=== PATIENT | male | born 1950 | race Caucasian/White ===

== ENCOUNTER 2018-01-02 20:30 | Emergency (ER) | payer OTHER, MEDICARE ==
[~2018-01-02] VITALS: Ht 190.5 cm; Wt 81.0 kg
[~2018-01-02 20:30] MED LIST: ATOR80TA; ATOR80TA PO; BUPR200T PO; BUPR200T10; CARB1DRO16; CARB1DRO17 EACHEYE; CHOL100010 PO; CHOL100046; CLA10T PO; COU3T PO; COU4T PO; CYAN1CRY PO; CYAN500T15; FERR236T3; FERROUS GLUCONATE PO; FLO0.4C; FLO0.4C PO; LACTC; LISI-222 PO; LISI2.5T89; LOP25T PO; LORA10CA; MECL-111; MECL12.5 PO; METO25TA6; MULT-1074 PO; MULT-382; VENL150C2; VENL150C50 PO; WARF5TAB; [UNRECOGNIZED DRUG - CODE]; [UNRECOGNIZED DRUG - CODE] PO
[2018-01-02 21:23] LABS: BASOPHILS % (AUTO) 0.3 % (0-1); EOSINOPHILS # (AUTO) 0.3 X10'3 (0-0.9); EOSINOPHILS % (AUTO) 5.9 % (0-6); HEMATOCRIT 34.4 % (42.0-52.0); HEMOGLOBIN 11.5 g/dl (14.0-17.9); LYMPHOCYTES # (AUTO) 1.2 X10'3 (1.1-4.8); LYMPHOCYTES % (AUTO) 22.9 % (21-51); MEAN CORPUSCULAR HEMOGLOBIN 29.3 PG (27.0-31.0); MEAN CORPUSCULAR HGB CONC 33.5 % (33.0-36.5); MEAN CORPUSCULAR VOLUME 87.6 FL (78-98); MEAN PLATELET VOLUME 6.3 FL (7.4-10.4); MONOCYTES # (AUTO) 0.4 X10'3 (0-0.9); MONOCYTES % (AUTO) 7.8 % (2-12); NEUTROPHILS # (AUTO) 3.3 X10'3 (1.8-7.7); NEUTROPHILS % (AUTO) 63.1 % (42-75); PLATELET COUNT 180 X10'3 (140-440); RED BLOOD COUNT 3.93 X10'6 (4.70-6.10); RED CELL DISTRIBUTION WIDTH 16.1 % (11.5-14.5); WHITE BLOOD COUNT 5.2 X10'3 (4.5-11.0)
[2018-01-02 21:37] LABS: ALANINE AMINOTRANSFERASE 41 U/L (12-78); ALBUMIN 3.6 G/DL (3.4-5.0); ALKALINE PHOSPHATASE 120 IU/L (46-116); ANION GAP 7 (8-16); ASPARTATE AMINO TRANSFERASE 31 U/L (10-37); BILIRUBIN,TOTAL 0.3 MG/DL (0.1-1.0); BLOOD UREA NITROGEN 40 MG/DL (7-18); CALCIUM 8.8 MG/DL (8.5-10.1); CHLORIDE 106 MMOL/L (99-107); GLUCOSE 87 MG/DL (70-104); POTASSIUM 4.8 MMOL/L (3.5-5.1); SODIUM 143 MMOL/L (135-145); TOTAL CARBON DIOXIDE 29.9 MMOL/L (24-32); TOTAL PROTEIN 7.3 G/DL (6.4-8.2); eGFR 43 ML/MIN
[2018-01-02 22:51] LABS: CLARITY,URINE CLOUDY (Clear); COLOR,URINE YELLOW (Yellow); GLUCOSE, URINE NEGATIVE (Neg); KETONES,URINE NEGATIVE (Neg); LEUKOCYTE ESTERASE ,URINE LARGE (Neg); NITRITES, URINE NEGATIVE (Neg); OCCULT BLOOD,URINE TRACE-INTACT (Neg); PROTEIN,URINE NEGATIVE (Neg); UROBILINOGEN,URINE 0.2 E.U/dL (0.2-1.0)
[2018-01-02 22:52] LABS: UA COLLECTION TYPE CLN CATCH MIDSTREAM
[2018-01-02 23:08] LABS: RBC,URINE 0-2 /HPF (0-2); WBC,URINE TNTC /HPF (0-4)
[2018-01-02 23:09] LABS: BACTERIA,URINE FEW /HPF (Neg); MUCUS STRANDS NONE SEEN /LPF (Neg); SQUAMOUS EPITHELIAL CELL,UR FEW /LPF (FEW); WBC CLUMPS,URINE MANY /HPF (NEGATIVE)
[2018-01-02] MEDS ORDERED: bacitracin 15gm ointment TP ONE (23:15)
[2018-01-02] MEDS ORDERED: ondansetron/PF 4mg/2ml inj IV ONE (23:15)
[2018-01-02] MEDS ORDERED: doxycycline hyclate 100mg tablet.DR PO ONE (23:15)
[2018-01-02] MEDS ORDERED: DOXY100C43 PO (23:39)
[2018-01-03 00:02] VITALS: BP 143/88
== END 2018-01-03 00:05 | disposition home or self-care (01) ==
LOC: ER 20:31
DX: S01.01XA Laceration without foreign body of scalp, initial encounter (principal); N39.0 Urinary tract infection, site not specified; D69.6 Thrombocytopenia, unspecified; J44.9 Chronic obstructive pulmonary disease, unspecified; I12.9 Hypertensive chronic kidney disease with stage 1 through stage 4 chronic kidney disease, or unspecified chronic kidney disease; E11.22 Type 2 diabetes mellitus with diabetic chronic kidney disease; N18.9 Chronic kidney disease, unspecified; E11.42 Type 2 diabetes mellitus with diabetic polyneuropathy; E78.00 Pure hypercholesterolemia, unspecified; Z86.73 Personal history of transient ischemic attack (TIA), and cerebral infarction without residual deficits; Z90.49 Acquired absence of other specified parts of digestive tract; Z98.890 Other specified postprocedural states; Z88.8 Allergy status to other drugs, medicaments and biological substances; Z79.899 Other long term (current) drug therapy; Z79.01 Long term (current) use of anticoagulants; W18.39XA Other fall on same level, initial encounter; Y93.89 Activity, other specified; Y92.89 Other specified places as the place of occurrence of the external cause; Y99.8 Other external cause status
CPT/HCPCS: 36415; 70450; 72125; 80053; 81001; 85025; 87077; 87088; 87186; 99285; J2405

== ENCOUNTER 2018-10-24 14:06 | Emergency (ER) | payer MEDICARE, OTHER ==
[~2018-10-24] VITALS: Ht 188 cm; Wt 80.0 kg
[~2018-10-24 14:06] MED LIST changes: -LACTC; +LACTC PO
[2018-10-24 14:37] LABS: BASOPHILS % (AUTO) 0.4 % (0-1); EOSINOPHILS # (AUTO) 0.2 X10'3 (0-0.9); EOSINOPHILS % (AUTO) 2.7 % (0-6); HEMATOCRIT 40.6 % (42.0-52.0); HEMOGLOBIN 13.3 g/dl (14.0-17.9); LYMPHOCYTES # (AUTO) 0.9 X10'3 (1.1-4.8); LYMPHOCYTES % (AUTO) 16.1 % (21-51); MEAN CORPUSCULAR HEMOGLOBIN 29.8 PG (27.0-31.0); MEAN CORPUSCULAR HGB CONC 32.8 % (33.0-36.5); MEAN CORPUSCULAR VOLUME 90.9 FL (78-98); MEAN PLATELET VOLUME 5.9 FL (7.4-10.4); MONOCYTES # (AUTO) 0.4 X10'3 (0-0.9); MONOCYTES % (AUTO) 6.3 % (2-12); NEUTROPHILS # (AUTO) 4.2 X10'3 (1.8-7.7); NEUTROPHILS % (AUTO) 74.5 % (42-75); PLATELET COUNT 213 X10'3 (140-440); RED BLOOD COUNT 4.46 X10'6 (4.70-6.10); RED CELL DISTRIBUTION WIDTH 14.4 % (11.5-14.5); WHITE BLOOD COUNT 5.7 X10'3 (4.5-11.0)
[2018-10-24 14:52] LABS: ALANINE AMINOTRANSFERASE 52 U/L (12-78); ALBUMIN 3.7 G/DL (3.4-5.0); ALKALINE PHOSPHATASE 143 IU/L (46-116); ANION GAP 10 (8-16); ASPARTATE AMINO TRANSFERASE 32 U/L (10-37); BILIRUBIN,TOTAL 0.3 MG/DL (0.1-1.0); BLOOD UREA NITROGEN 28 MG/DL (7-18); CALCIUM 9.4 MG/DL (8.5-10.1); CHLORIDE 103 MMOL/L (99-107); CREATININE 1.65 MG/DL (0.60-1.10); GLUCOSE 126 MG/DL (70-104); POTASSIUM 4.4 MMOL/L (3.5-5.1); SODIUM 140 MMOL/L (135-145); TOTAL CARBON DIOXIDE 27.4 MMOL/L (24-32); TOTAL PROTEIN 7.5 G/DL (6.4-8.2); eGFR 41 ML/MIN
[2018-10-24 14:56] LABS: CLARITY,URINE CLOUDY (Clear); COLOR,URINE YELLOW (Yellow); GLUCOSE, URINE NEGATIVE (Neg); KETONES,URINE NEGATIVE (Neg); LEUKOCYTE ESTERASE ,URINE LARGE (Neg); NITRITES, URINE POSITIVE (Neg); OCCULT BLOOD,URINE MODERATE (Neg); PH,URINE 7.5 (4.8-8.0); PROTEIN,URINE TRACE mg/dl (Neg); UROBILINOGEN,URINE 0.2 E.U/dL (0.2-1.0)
[2018-10-24 14:57] LABS: UA COLLECTION TYPE STRAIGHT CATH
[2018-10-24 15:01] LABS: BACTERIA,URINE 2+ /HPF (Neg); MUCUS STRANDS NONE SEEN /LPF (Neg); SQUAMOUS EPITHELIAL CELL,UR NONE SEEN /LPF (FEW); WBC CLUMPS,URINE MANY /HPF (NEGATIVE); WBC,URINE TNTC /HPF (0-4)
[2018-10-24] MEDS ORDERED: VENL-191 PO (15:07)
[2018-10-24] MEDS ORDERED: SULF1TAB49 PO (15:08)
[2018-10-24] MEDS ORDERED: WARF3TAB PO (15:25)
[2018-10-24] MEDS ORDERED: TRAZ-218 PO (15:25)
[2018-10-24] MEDS ORDERED: normal saline 1000ml 1,000 ML IV ONE (15:30)
[2018-10-24 15:33] VITALS: BP 146/84
== END 2018-10-24 15:58 | disposition home or self-care (01) ==
LOC: ER 14:07
DX: N39.0 Urinary tract infection, site not specified (principal); E11.42 Type 2 diabetes mellitus with diabetic polyneuropathy; E78.00 Pure hypercholesterolemia, unspecified; J44.9 Chronic obstructive pulmonary disease, unspecified; I12.9 Hypertensive chronic kidney disease with stage 1 through stage 4 chronic kidney disease, or unspecified chronic kidney disease; E11.22 Type 2 diabetes mellitus with diabetic chronic kidney disease; N18.9 Chronic kidney disease, unspecified; F03.90 Unspecified dementia, unspecified severity, without behavioral disturbance, psychotic disturbance, mood disturbance, and anxiety; Z90.49 Acquired absence of other specified parts of digestive tract; Z98.890 Other specified postprocedural states; Z86.73 Personal history of transient ischemic attack (TIA), and cerebral infarction without residual deficits; Z79.01 Long term (current) use of anticoagulants; Z79.899 Other long term (current) drug therapy; Z88.1 Allergy status to other antibiotic agents; Z88.8 Allergy status to other drugs, medicaments and biological substances
CPT/HCPCS: 36415; 80053; 81001; 85025; 87077; 87088; 87186; 93005; 99284; J7030; P9612

== ENCOUNTER 2019-08-24 12:28 | Emergency (ER) | payer MEDICARE ==
[~2019-08-24] VITALS: Ht 182.9 cm; Wt 90.9 kg
[~2019-08-24 12:28] MED LIST changes: -ATOR80TA; -BUPR200T10; -CARB1DRO16; -CHOL100046; -COU4T PO; -CYAN500T15; -FLO0.4C; -LISI2.5T89; -LORA10CA; -MECL-111; -MECL12.5 PO; -METO25TA6; +TRAZ-251 PO; +VENL-191 PO; -VENL150C2; -VENL150C50 PO; +WARF3TAB PO; -WARF5TAB; -[UNRECOGNIZED DRUG - CODE]
[2019-08-24 13:24] LABS: CLARITY,URINE SLIGHTLY CLOUDY (Clear); COLOR,URINE YELLOW (Yellow); GLUCOSE, URINE NEGATIVE (Neg); KETONES,URINE NEGATIVE (Neg); LEUKOCYTE ESTERASE ,URINE LARGE (Neg); NITRITES, URINE NEGATIVE (Neg); OCCULT BLOOD,URINE SMALL (Neg); PROTEIN,URINE 30 mg/dl (Neg); UROBILINOGEN,URINE 0.2 E.U/dL (0.2-1.0)
[2019-08-24 13:25] LABS: UA COLLECTION TYPE VOIDED
[2019-08-24 13:31] LABS: BACTERIA,URINE 1+ /HPF (Neg); RBC,URINE 0-2 /HPF (0-2); SQUAMOUS EPITHELIAL CELL,UR FEW /LPF (FEW); WBC,URINE TNTC /HPF (0-4)
--- NOTE | 2019-08-24 14:31 | NUR ---
PT SLEEPING QUIETLY BUT AROUSABLE
[2019-08-24 15:10] LABS: BASOPHILS % (AUTO) 0.4 % (0-1); EOSINOPHILS # (AUTO) 0.2 X10'3 (0-0.9); HEMATOCRIT 38.5 % (42.0-52.0); HEMOGLOBIN 12.8 g/dl (14.0-17.9); LYMPHOCYTES # (AUTO) 1.1 X10'3 (1.1-4.8); LYMPHOCYTES % (AUTO) 18.2 % (21-51); MEAN CORPUSCULAR HEMOGLOBIN 31.4 PG (27.0-31.0); MEAN CORPUSCULAR HGB CONC 33.3 g/dL (33.0-36.5); MEAN CORPUSCULAR VOLUME 94.4 FL (78-98); MEAN PLATELET VOLUME 6.3 FL (7.4-10.4); MONOCYTES # (AUTO) 0.4 X10'3 (0-0.9); MONOCYTES % (AUTO) 6.6 % (2-12); NEUTROPHILS # (AUTO) 4.2 X10'3 (1.8-7.7); NEUTROPHILS % (AUTO) 70.8 % (42-75); PLATELET COUNT 140 X10'3 (140-440); RED BLOOD COUNT 4.08 X10'6 (4.70-6.10); RED CELL DISTRIBUTION WIDTH 14.2 % (11.5-14.5)
[2019-08-24 15:25] LABS: ALANINE AMINOTRANSFERASE 34 U/L (12-78); ALBUMIN 3.2 G/DL (3.4-5.0); ALBUMIN/GLOBULIN RATIO 0.8 (1.1-1.5); ALKALINE PHOSPHATASE 98 IU/L (46-116); ANION GAP 4 (8-16); ASPARTATE AMINO TRANSFERASE 24 U/L (10-37); BILIRUBIN,TOTAL 0.2 MG/DL (0.1-1.0); BLOOD UREA NITROGEN 27 MG/DL (7-18); BUN/CREATININE RATIO 14.6 (5.4-32.0); CALCIUM 9.5 MG/DL (8.5-10.1); CHLORIDE 111 MMOL/L (99-107); CREATININE 1.85 MG/DL (0.60-1.10); GLUCOSE 91 MG/DL (70-104); LIPASE 128 U/L (73-393); PHOSPHORUS 2.6 MG/DL (2.3-4.5); POTASSIUM 5.4 MMOL/L (3.5-5.1); SODIUM 144 MMOL/L (135-145); TOTAL CARBON DIOXIDE 29.5 MMOL/L (24-32); TOTAL PROTEIN 7.1 G/DL (6.4-8.2); eGFR 36 ML/MIN
[2019-08-24 16:31] VITALS: BP 142/89
== END 2019-08-24 16:35 | disposition home or self-care (01) ==
LOC: ER 12:29
DX: N39.0 Urinary tract infection, site not specified (principal); E87.5 Hyperkalemia; E78.00 Pure hypercholesterolemia, unspecified; J44.9 Chronic obstructive pulmonary disease, unspecified; I12.9 Hypertensive chronic kidney disease with stage 1 through stage 4 chronic kidney disease, or unspecified chronic kidney disease; E11.22 Type 2 diabetes mellitus with diabetic chronic kidney disease; N18.9 Chronic kidney disease, unspecified; F32.9 Major depressive disorder, single episode, unspecified; Z90.49 Acquired absence of other specified parts of digestive tract; Z88.1 Allergy status to other antibiotic agents; Z88.8 Allergy status to other drugs, medicaments and biological substances; Z79.899 Other long term (current) drug therapy; Z79.01 Long term (current) use of anticoagulants; Z98.890 Other specified postprocedural states; Z86.73 Personal history of transient ischemic attack (TIA), and cerebral infarction without residual deficits
CPT/HCPCS: 36415; 80053; 81001; 83690; 83735; 84100; 85025; 87077; 87088; 87186; 99284

== ENCOUNTER 2019-10-27 11:23 | Inpatient (IN) | payer MEDICARE, OTHER ==
[~2019-10-27] VITALS: Ht 185.4 cm; Wt 100.0 kg
[~2019-10-27 11:23] MED LIST changes: -FERR236T3; +FERR236T3 PO
[2019-10-27 12:05] LABS: CLARITY,URINE CLOUDY (Clear); COLOR,URINE YELLOW (Yellow); GLUCOSE, URINE NEGATIVE (Neg); KETONES,URINE NEGATIVE (Neg); LEUKOCYTE ESTERASE ,URINE LARGE (Neg); NITRITES, URINE NEGATIVE (Neg); OCCULT BLOOD,URINE SMALL (Neg); PROTEIN,URINE TRACE mg/dl (Neg); UROBILINOGEN,URINE 0.2 E.U/dL (0.2-1.0)
[2019-10-27 12:15] LABS: UA COLLECTION TYPE STRAIGHT CATH
[2019-10-27 12:16] LABS: WBC,URINE TNTC /HPF (0-4)
[2019-10-27 12:18] LABS: SQUAMOUS EPITHELIAL CELL,UR FEW /LPF (FEW)
[2019-10-27 12:19] LABS: WBC CLUMPS,URINE MANY /HPF (NEGATIVE)
[2019-10-27 12:21] LABS: BACTERIA,URINE FEW /HPF (Neg)
[2019-10-27 12:22] LABS: RBC,URINE 20-50 /HPF (0-2)
[2019-10-27] MEDS ORDERED: gentamicin 40 MG/1 ML inj IV ONE (13:40)
[2019-10-27] MEDS ORDERED: gentamicin inj 450 MG in normal saline 100ml IV soln 88.75 ML IV ONE (13:46)
[2019-10-27 14:04] LABS: BASOPHILS % (AUTO) 0.3 % (0-1); EOSINOPHILS # (AUTO) 0.2 X10'3 (0-0.9); EOSINOPHILS % (AUTO) 3.8 % (0-6); HEMATOCRIT 34.9 % (42.0-52.0); HEMOGLOBIN 11.8 g/dl (14.0-17.9); LYMPHOCYTES # (AUTO) 1.2 X10'3 (1.1-4.8); LYMPHOCYTES % (AUTO) 20.3 % (21-51); MEAN CORPUSCULAR HEMOGLOBIN 31.4 PG (27.0-31.0); MEAN CORPUSCULAR HGB CONC 33.7 g/dL (33.0-36.5); MEAN CORPUSCULAR VOLUME 93.1 FL (78-98); MONOCYTES # (AUTO) 0.5 X10'3 (0-0.9); MONOCYTES % (AUTO) 7.9 % (2-12); NEUTROPHILS # (AUTO) 3.9 X10'3 (1.8-7.7); NEUTROPHILS % (AUTO) 67.7 % (42-75); PLATELET COUNT 156 X10'3 (140-440); RED BLOOD COUNT 3.74 X10'6 (4.70-6.10); RED CELL DISTRIBUTION WIDTH 13.8 % (11.5-14.5); WHITE BLOOD COUNT 5.7 X10'3 (4.5-11.0)
[2019-10-27 14:13] LABS: PARTIAL THROMBOPLASTIN TIME 39 SECONDS (22-32)
[2019-10-27 14:15] LABS: ALANINE AMINOTRANSFERASE 36 U/L (12-78); ALBUMIN 3.1 G/DL (3.4-5.0); ALBUMIN/GLOBULIN RATIO 0.9 (1.1-1.5); ALKALINE PHOSPHATASE 98 IU/L (46-116); ANION GAP 3 (8-16); ASPARTATE AMINO TRANSFERASE 22 U/L (10-37); BILIRUBIN,TOTAL 0.2 MG/DL (0.1-1.0); BLOOD UREA NITROGEN 30 MG/DL (7-18); BUN/CREATININE RATIO 16.1 (5.4-32.0); CALCIUM 8.4 MG/DL (8.5-10.1); CHLORIDE 109 MMOL/L (99-107); CREATININE 1.86 MG/DL (0.60-1.10); GLUCOSE 86 MG/DL (70-104); MAGNESIUM 1.7 MG/DL (1.5-2.4); POTASSIUM 4.3 MMOL/L (3.5-5.1); SODIUM 143 MMOL/L (135-145); TOTAL PROTEIN 6.5 G/DL (6.4-8.2); eGFR 36 ML/MIN
[2019-10-27] MEDS ORDERED: morphine 2 MG/ML inj. syringe IV PRN ×2 (15:25)
[2019-10-27] MEDS ORDERED: magnesium hydroxide 30ml (MOM) UD suspension PO PRN (15:25)
[2019-10-27] MEDS ORDERED: mag hydrox/Alum hydrox/simeth 30ml oral suspension PO PRN (15:25)
[2019-10-27] MEDS ORDERED: ondansetron/PF 4mg/2ml inj IV PRN (15:25)
[2019-10-27] MEDS ORDERED: acetaminophen 325mg tablet PO PRN ×2 (15:25)
--- NOTE | 2019-10-27 15:30 | NUR ---
PT'S SISTER ANSHUL .
--- NOTE | 2019-10-27 15:31 | NUR ---
PT'S SISTER ANSHUL IS PT'S CONSERVATOR.
[2019-10-27] MEDS: normal saline 1000ml 1,000 ML IV SCH (15:32)
[2019-10-27] MEDS ORDERED: MEROPENEM 1GM/NS 50ML IVPB 50 ML IV SCH (16:00)
[2019-10-27] MEDS ORDERED: DIVA-74 PO (16:01)
[2019-10-27] MEDS ORDERED: BUPR100T13 PO (16:01)
[2019-10-27] MEDS: aztreonam inj. 1,000 MG in normal saline 100ml IV soln 100 ML IV SCH (16:15)
--- NOTE | 2019-10-27 18:30 | NUR ---
Received report from Laurita PARADA pt is laying in bed eating dinner, requesting to be cleaned up
--- NOTE | 2019-10-27 18:31 | NUR ---
Pt. HAS WHEEZING LS AND DROPPING SA02. O2 APPLIED AND EFFECTIVE. MD AWARE. RT EVAL ORDERED. RT NOTIFIED. [place]STATIN ORDERED FOR RASH IN GROIN. PT. WILL NEED CONTINUED IV ANTIBIOTICS. MD ORDERED PICC TO BE PLACED. PICC CONSENT WITH CONSERVATORS NUMBER IN CHART.
[2019-10-27 18:45] VITALS: BP 143/86
[2019-10-27] MEDS ORDERED: ferrous gluconate 324mg tablet PO SCH (18:46)
[2019-10-27] MEDS: traZODone 50mg tablet PO SCH (20:46)
[2019-10-27] MEDS: buPROPion 100mg tablet PO SCH (20:46)
[2019-10-27] MEDS: atorvastatin 20mg tablet PO SCH (20:46)
[2019-10-27] MEDS: nystatin 15 GM powder TP SCH (20:46)
[2019-10-27] MEDS: metoprolol tartrate 25mg tablet PO SCH (20:47)
[2019-10-27] MEDS: divalproex sodium 250mg tablet PO SCH (20:47)
[2019-10-28 00:15] VITALS: BP 144/83
[2019-10-28] MEDS: aztreonam inj. 1,000 MG in normal saline 100ml IV soln 100 ML IV SCH ×4 (00:35→23:53)
[2019-10-28] MEDS: normal saline 1000ml 1,000 ML IV SCH ×2 (02:55→13:39)
[2019-10-28 06:14] LABS: BASOPHILS % (AUTO) 0.3 % (0-1); EOSINOPHILS # (AUTO) 0.2 X10'3 (0-0.9); EOSINOPHILS % (AUTO) 3.9 % (0-6); HEMATOCRIT 35.1 % (42.0-52.0); HEMOGLOBIN 11.8 g/dl (14.0-17.9); LYMPHOCYTES # (AUTO) 1.2 X10'3 (1.1-4.8); LYMPHOCYTES % (AUTO) 23.5 % (21-51); MEAN CORPUSCULAR HEMOGLOBIN 31.5 PG (27.0-31.0); MEAN CORPUSCULAR HGB CONC 33.6 g/dL (33.0-36.5); MEAN CORPUSCULAR VOLUME 93.8 FL (78-98); MEAN PLATELET VOLUME 6.5 FL (7.4-10.4); MONOCYTES # (AUTO) 0.4 X10'3 (0-0.9); MONOCYTES % (AUTO) 7.5 % (2-12); NEUTROPHILS # (AUTO) 3.2 X10'3 (1.8-7.7); NEUTROPHILS % (AUTO) 64.8 % (42-75); PLATELET COUNT 146 X10'3 (140-440); RED BLOOD COUNT 3.74 X10'6 (4.70-6.10); WHITE BLOOD COUNT 4.9 X10'3 (4.5-11.0)
[2019-10-28 06:26] LABS: ALBUMIN 2.9 G/DL (3.4-5.0); ANION GAP 6 (8-16); BLOOD UREA NITROGEN 23 MG/DL (7-18); BUN/CREATININE RATIO 13.9 (5.4-32.0); CALCIUM 8.6 MG/DL (8.5-10.1); CHLORIDE 110 MMOL/L (99-107); CREATININE 1.65 MG/DL (0.60-1.10); GLUCOSE 83 MG/DL (70-104); POTASSIUM 4.4 MMOL/L (3.5-5.1); SODIUM 144 MMOL/L (135-145); TOTAL CARBON DIOXIDE 28.5 MMOL/L (24-32); eGFR 41 ML/MIN
--- NOTE | 2019-10-28 06:41 | NUR ---
Gave report to Rose PARADA and Judith PARADA pt is resting on 1L of O2 via NC in no apparent distress, call light and items of freq use within reach.
[2019-10-28 07:00] VITALS: BP 127/80
[2019-10-28] MEDS ORDERED: enoxaparin 40mg/0.4ml syringe SUBCUT SCH (08:00)
[2019-10-28] MEDS: nystatin 15 GM powder TP SCH ×2 (08:00→20:48)
[2019-10-28] MEDS: ferrous gluconate 324mg tablet PO SCH ×2 (08:17→17:48)
[2019-10-28] MEDS: divalproex sodium 250mg tablet PO SCH ×2 (08:17→20:48)
[2019-10-28] MEDS: vitamin D (cholecalciferol) 1,000 unit tablet PO SCH (08:18)
[2019-10-28] MEDS: lisinopril 5mg tablet PO SCH (08:19)
[2019-10-28] MEDS: metoprolol tartrate 25mg tablet PO SCH ×2 (08:20→20:47)
[2019-10-28] MEDS: cyanocobalamin 500mcg tablet PO SCH (08:22)
[2019-10-28] MEDS: loratadine 10mg tablet PO SCH (08:22)
[2019-10-28] MEDS: lactobacillus rhamnosus 10,000 MMU CELLS/CAPSULE PO SCH (08:22)
[2019-10-28] MEDS: buPROPion 100mg tablet PO SCH ×2 (08:22→20:46)
[2019-10-28] MEDS: multivitamins, therapeutics tablet PO SCH (08:22)
[2019-10-28] MEDS: tamsulosin 0.4mg capsule PO SCH (08:22)
[2019-10-28 11:00] VITALS: BP 117/76
--- NOTE | 2019-10-28 13:39 | NUR ---
PRESSURE ULCER EDUCATION: DEFINITION: A pressure ulcer is an area of skin that breaks down when you stay in one position too long. The constant pressure against the skin reduces the blood flow to that area and the affected tissue dies. CAUSES: "Being bedridden or in a wheelchair "Fragile skin "Having a chronic condition, such as diabetes or vascular disease "Inability to move certain parts of your body without assistance "Older age "Incontinence of urine or stool SYMPTOMS: "A reddened area that DOES NOT turn white when pressed on - this can be the beginning of a pressure ulcer "A blister, deep sore or a crater - these can be advanced pressure ulcers FIRST AID: "Relieve the pressure on this area "Keep the area clean and dry "Call your primary doctor if you see any of the above symptoms "DO NOT massage the area "DO NOT use a donut shaped or ring shaped pillow- these actually interfere with the blood flow and cause complications PREVENTION: "Check for pressure ulcers everyday "Change position at least every two hours to relieve pressure "Use items that help relieve pressure- pillows, sheepskin, foam padding, and powders. "Keep skin clean and dry "Eat healthy well balanced meals "Exercise daily IF YOU SEE ANY OF THESE SYMPTOMS WHILE IN THE HOSPITAL - TELL YOUR NURSE IMMEDIATELY. IF YOU SEE ANY OF THESE SYMPTOMS WHILE AT HOME OR HAVE ANY QUESTIONS OR CONCERNS ABOUT PRESSURE ULCERS - CALL YOUR PRIMARY DOCTOR IMMEDIATELY. Addendum: 10/28/19 at 1339 by Des Newell RN Amended: Links added.
[2019-10-28] MEDS: polyvinyl alcohol ophthalmic drops 15ml bottle EACHEYE PRN (15:15)
[2019-10-28 18:00] VITALS: BP 149/63
--- NOTE | 2019-10-28 18:15 | NUR ---
Patient in room [facility]. I have received report from Rose Guzmán RN and had the opportunity to ask questions and assume patient care.
--- NOTE | 2019-10-28 19:01 | NUR ---
Problems reprioritized. Patient report given, questions answered & plan of care reviewed with Lynda PARADA.
[2019-10-28] MEDS: atorvastatin 20mg tablet PO SCH (20:46)
[2019-10-28] MEDS: traZODone 50mg tablet PO SCH (20:46)
[2019-10-28] MEDS: warfarin 4mg tablet PO SCH (20:48)
[2019-10-29] VITALS: BP 127/69
[2019-10-29] MEDS: normal saline 1000ml 1,000 ML IV SCH ×3 (02:37→14:42)
[2019-10-29 03:29] LABS: BASOPHILS % (AUTO) 0.6 % (0-1); EOSINOPHILS # (AUTO) 0.2 X10'3 (0-0.9); EOSINOPHILS % (AUTO) 4.1 % (0-6); HEMATOCRIT 33.6 % (42.0-52.0); HEMOGLOBIN 11.3 g/dl (14.0-17.9); LYMPHOCYTES # (AUTO) 1.1 X10'3 (1.1-4.8); LYMPHOCYTES % (AUTO) 24.1 % (21-51); MEAN CORPUSCULAR HEMOGLOBIN 31.3 PG (27.0-31.0); MEAN CORPUSCULAR HGB CONC 33.6 g/dL (33.0-36.5); MEAN PLATELET VOLUME 6.6 FL (7.4-10.4); MONOCYTES # (AUTO) 0.4 X10'3 (0-0.9); MONOCYTES % (AUTO) 8.6 % (2-12); NEUTROPHILS # (AUTO) 2.7 X10'3 (1.8-7.7); NEUTROPHILS % (AUTO) 62.6 % (42-75); PLATELET COUNT 143 X10'3 (140-440); RED BLOOD COUNT 3.62 X10'6 (4.70-6.10); WHITE BLOOD COUNT 4.4 X10'3 (4.5-11.0)
[2019-10-29 03:34] LABS: ALBUMIN 2.9 G/DL (3.4-5.0); ANION GAP 2 (8-16); BLOOD UREA NITROGEN 24 MG/DL (7-18); CALCIUM 8.2 MG/DL (8.5-10.1); CHLORIDE 109 MMOL/L (99-107); CREATININE 1.72 MG/DL (0.60-1.10); GLUCOSE 105 MG/DL (70-104); SODIUM 141 MMOL/L (135-145); TOTAL CARBON DIOXIDE 29.8 MMOL/L (24-32); eGFR 39 ML/MIN
[2019-10-29 03:36] LABS: POTASSIUM 4.7 MMOL/L (3.5-5.1)
--- NOTE | 2019-10-29 06:27 | NUR ---
Problems reprioritized. Patient report given, questions answered & plan of care reviewed with KARMA Levine.
--- NOTE | 2019-10-29 06:55 | NUR ---
Patient in room [facility]. I have received report from Lynda PARADA and had the opportunity to ask questions and assume patient care.
[2019-10-29 07:00] VITALS: BP 122/74
[2019-10-29] MEDS: nystatin 15 GM powder TP SCH ×2 (08:00→20:53)
[2019-10-29] MEDS: vitamin D (cholecalciferol) 1,000 unit tablet PO SCH (08:21)
[2019-10-29] MEDS: aztreonam inj. 1,000 MG in normal saline 100ml IV soln 100 ML IV SCH ×2 (08:21→14:51)
[2019-10-29] MEDS: ferrous gluconate 324mg tablet PO SCH ×2 (08:21→17:43)
[2019-10-29] MEDS: multivitamins, therapeutics tablet PO SCH (08:21)
[2019-10-29] MEDS: metoprolol tartrate 25mg tablet PO SCH ×2 (08:22→20:36)
[2019-10-29] MEDS: buPROPion 100mg tablet PO SCH ×2 (08:23→20:36)
[2019-10-29] MEDS: lactobacillus rhamnosus 10,000 MMU CELLS/CAPSULE PO SCH (08:23)
[2019-10-29] MEDS: loratadine 10mg tablet PO SCH (08:24)
[2019-10-29] MEDS: lisinopril 5mg tablet PO SCH (08:24)
[2019-10-29] MEDS: cyanocobalamin 500mcg tablet PO SCH (08:24)
[2019-10-29] MEDS: tamsulosin 0.4mg capsule PO SCH (08:24)
[2019-10-29] MEDS: divalproex sodium 250mg tablet PO SCH ×2 (08:25→20:34)
[2019-10-29] MEDS: polyvinyl alcohol ophthalmic drops 15ml bottle EACHEYE PRN (08:27)
[2019-10-29] MEDS ORDERED: FLU VACC QS2019-20 36MOS UP/PF 60 MCG/0.5 ML SYRINGE IMVAC ONE (10:00)
[2019-10-29 11:00] VITALS: BP 141/72
[2019-10-29 18:00] VITALS: BP 131/78
--- NOTE | 2019-10-29 18:43 | NUR ---
patient appears stable all cares given. PT eval placed per DR Pascual, Report given to Volodymyr PARADA
[2019-10-29] MEDS: atorvastatin 20mg tablet PO SCH (20:34)
[2019-10-29] MEDS: traZODone 50mg tablet PO SCH (20:37)
[2019-10-29] MEDS: warfarin 4mg tablet PO SCH (20:37)
[2019-10-30] VITALS: BP 138/75
[2019-10-30] MEDS: aztreonam inj. 1,000 MG in normal saline 100ml IV soln 100 ML IV SCH ×4 (00:30→23:32)
[2019-10-30] MEDS: normal saline 1000ml 1,000 ML IV SCH ×3 (03:21→23:21)
--- NOTE | 2019-10-30 06:17 | NUR ---
report given to KARMA Levine
--- NOTE | 2019-10-30 06:41 | NUR ---
Patient in room [facility]. I have received report from Volodymyr PARADA and had the opportunity to ask questions and assume patient care.
[2019-10-30 07:11] LABS: BASOPHILS % (AUTO) 0.3 % (0-1); EOSINOPHILS # (AUTO) 0.2 X10'3 (0-0.9); EOSINOPHILS % (AUTO) 4.3 % (0-6); HEMATOCRIT 36.7 % (42.0-52.0); HEMOGLOBIN 12.3 g/dl (14.0-17.9); LYMPHOCYTES # (AUTO) 1.1 X10'3 (1.1-4.8); LYMPHOCYTES % (AUTO) 21.5 % (21-51); MEAN CORPUSCULAR HEMOGLOBIN 31.4 PG (27.0-31.0); MEAN CORPUSCULAR HGB CONC 33.6 g/dL (33.0-36.5); MEAN CORPUSCULAR VOLUME 93.5 FL (78-98); MEAN PLATELET VOLUME 6.2 FL (7.4-10.4); MONOCYTES # (AUTO) 0.4 X10'3 (0-0.9); MONOCYTES % (AUTO) 7.7 % (2-12); NEUTROPHILS # (AUTO) 3.5 X10'3 (1.8-7.7); NEUTROPHILS % (AUTO) 66.2 % (42-75); PLATELET COUNT 144 X10'3 (140-440); RED BLOOD COUNT 3.93 X10'6 (4.70-6.10); RED CELL DISTRIBUTION WIDTH 13.8 % (11.5-14.5); WHITE BLOOD COUNT 5.3 X10'3 (4.5-11.0)
[2019-10-30 07:23] LABS: ALBUMIN 2.9 G/DL (3.4-5.0); ANION GAP 2 (8-16); BLOOD UREA NITROGEN 20 MG/DL (7-18); BUN/CREATININE RATIO 13.1 (5.4-32.0); CALCIUM 8.7 MG/DL (8.5-10.1); CHLORIDE 111 MMOL/L (99-107); CREATININE 1.53 MG/DL (0.60-1.10); GLUCOSE 71 MG/DL (70-104); POTASSIUM 4.8 MMOL/L (3.5-5.1); SODIUM 142 MMOL/L (135-145); TOTAL CARBON DIOXIDE 28.7 MMOL/L (24-32); eGFR 45 ML/MIN
[2019-10-30 08:00] VITALS: BP 161/63
[2019-10-30] MEDS: multivitamins, therapeutics tablet PO SCH (08:10)
[2019-10-30] MEDS: tamsulosin 0.4mg capsule PO SCH (08:10)
[2019-10-30] MEDS: lactobacillus rhamnosus 10,000 MMU CELLS/CAPSULE PO SCH (08:10)
[2019-10-30] MEDS: lisinopril 5mg tablet PO SCH (08:10)
[2019-10-30] MEDS: vitamin D (cholecalciferol) 1,000 unit tablet PO SCH (08:11)
[2019-10-30] MEDS: cyanocobalamin 500mcg tablet PO SCH (08:11)
[2019-10-30] MEDS: buPROPion 100mg tablet PO SCH ×2 (08:11→21:54)
[2019-10-30] MEDS: ferrous gluconate 324mg tablet PO SCH ×2 (08:11→16:55)
[2019-10-30] MEDS: polyvinyl alcohol ophthalmic drops 15ml bottle EACHEYE PRN (08:12)
[2019-10-30] MEDS: divalproex sodium 250mg tablet PO SCH ×2 (08:12→21:52)
[2019-10-30] MEDS: loratadine 10mg tablet PO SCH (08:12)
[2019-10-30] MEDS: nystatin 15 GM powder TP SCH ×2 (08:13→21:56)
[2019-10-30] MEDS: metoprolol tartrate 25mg tablet PO SCH ×2 (08:16→21:53)
[2019-10-30 11:00] VITALS: BP 115/66
--- NOTE | 2019-10-30 18:29 | NUR ---
patient up in chair per PT all cares given no complaints. Seen by DR Pascual. Report given to anam PARADA
--- NOTE | 2019-10-30 18:45 | NUR ---
Patient in room [facility]. I have received report from Julianna PARADA and had the opportunity to ask questions and assume patient care.
[2019-10-30 20:00] VITALS: BP 121/70
[2019-10-30] MEDS ORDERED: warfarin 10mg tablet PO ONE (21:00)
[2019-10-30] MEDS: traZODone 50mg tablet PO SCH (21:52)
[2019-10-30] MEDS: atorvastatin 20mg tablet PO SCH (21:53)
[2019-10-31] VITALS: BP 144/87
[2019-10-31] MEDS: normal saline 1000ml 1,000 ML IV SCH (04:54)
[2019-10-31 05:21] LABS: BASOPHILS % (AUTO) 0.2 % (0-1); EOSINOPHILS # (AUTO) 0.3 X10'3 (0-0.9); EOSINOPHILS % (AUTO) 5.4 % (0-6); HEMATOCRIT 34.6 % (42.0-52.0); HEMOGLOBIN 11.8 g/dl (14.0-17.9); LYMPHOCYTES % (AUTO) 19.7 % (21-51); MEAN CORPUSCULAR HEMOGLOBIN 31.9 PG (27.0-31.0); MEAN CORPUSCULAR HGB CONC 34.1 g/dL (33.0-36.5); MEAN CORPUSCULAR VOLUME 93.5 FL (78-98); MEAN PLATELET VOLUME 6.3 FL (7.4-10.4); MONOCYTES # (AUTO) 0.4 X10'3 (0-0.9); MONOCYTES % (AUTO) 7.7 % (2-12); NEUTROPHILS # (AUTO) 3.2 X10'3 (1.8-7.7); PLATELET COUNT 131 X10'3 (140-440); RED BLOOD COUNT 3.69 X10'6 (4.70-6.10); RED CELL DISTRIBUTION WIDTH 13.8 % (11.5-14.5); WHITE BLOOD COUNT 4.8 X10'3 (4.5-11.0)
[2019-10-31 05:32] LABS: ALBUMIN 2.9 G/DL (3.4-5.0); ANION GAP 4 (8-16); BLOOD UREA NITROGEN 24 MG/DL (7-18); BUN/CREATININE RATIO 14.6 (5.4-32.0); CALCIUM 8.5 MG/DL (8.5-10.1); CHLORIDE 111 MMOL/L (99-107); CREATININE 1.64 MG/DL (0.60-1.10); GLUCOSE 92 MG/DL (70-104); POTASSIUM 4.9 MMOL/L (3.5-5.1); SODIUM 143 MMOL/L (135-145); eGFR 42 ML/MIN
--- NOTE | 2019-10-31 06:50 | NUR ---
Problems reprioritized. Patient report given, questions answered & plan of care reviewed with Paula PARADA.
--- NOTE | 2019-10-31 06:52 | NUR ---
Patient in room [facility]. I have received report from Loren PARADA and had the opportunity to ask questions and assume patient care.
[2019-10-31 08:00] VITALS: BP 143/83
[2019-10-31] MEDS: loratadine 10mg tablet PO SCH (08:12)
[2019-10-31] MEDS: vitamin D (cholecalciferol) 1,000 unit tablet PO SCH (08:12)
[2019-10-31] MEDS: buPROPion 100mg tablet PO SCH ×2 (08:12→20:26)
[2019-10-31] MEDS: multivitamins, therapeutics tablet PO SCH (08:12)
[2019-10-31] MEDS: lactobacillus rhamnosus 10,000 MMU CELLS/CAPSULE PO SCH (08:12)
[2019-10-31] MEDS: ferrous gluconate 324mg tablet PO SCH ×2 (08:12→17:52)
[2019-10-31] MEDS: tamsulosin 0.4mg capsule PO SCH (08:12)
[2019-10-31] MEDS: cyanocobalamin 500mcg tablet PO SCH (08:12)
[2019-10-31] MEDS: lisinopril 5mg tablet PO SCH (08:13)
[2019-10-31] MEDS: metoprolol tartrate 25mg tablet PO SCH ×2 (08:14→20:27)
[2019-10-31] MEDS: divalproex sodium 250mg tablet PO SCH ×2 (08:18→20:25)
[2019-10-31] MEDS: nystatin 15 GM powder TP SCH ×2 (08:24→20:27)
[2019-10-31] MEDS: aztreonam inj. 1,000 MG in normal saline 100ml IV soln 100 ML IV SCH ×2 (08:32→17:50)
[2019-10-31 11:00] VITALS: BP 154/80
[2019-10-31] MEDS: polyvinyl alcohol ophthalmic drops 15ml bottle EACHEYE PRN (11:44)
--- NOTE | 2019-10-31 18:30 | NUR ---
Patient in room [facility]. I have received report from Paula PARADA and had the opportunity to ask questions and assume patient care.
[2019-10-31 20:00] VITALS: BP 118/62
[2019-10-31] MEDS: traZODone 50mg tablet PO SCH (20:25)
[2019-10-31] MEDS: docusate sod 100mg capsule PO SCH (20:25)
[2019-10-31] MEDS: atorvastatin 20mg tablet PO SCH (20:26)
[2019-11-01 00:38] VITALS: BP 148/89
[2019-11-01 05:33] LABS: ALBUMIN 2.9 G/DL (3.4-5.0); ANION GAP 8 (8-16); BLOOD UREA NITROGEN 26 MG/DL (7-18); BUN/CREATININE RATIO 14.3 (5.4-32.0); CALCIUM 8.8 MG/DL (8.5-10.1); CHLORIDE 109 MMOL/L (99-107); CREATININE 1.82 MG/DL (0.60-1.10); GLUCOSE 86 MG/DL (70-104); SODIUM 141 MMOL/L (135-145); TOTAL CARBON DIOXIDE 24.3 MMOL/L (24-32); eGFR 37 ML/MIN
[2019-11-01 05:34] LABS: BASOPHILS % (AUTO) 0.4 % (0-1); EOSINOPHILS # (AUTO) 0.3 X10'3 (0-0.9); HEMATOCRIT 36.3 % (42.0-52.0); HEMOGLOBIN 12.2 g/dl (14.0-17.9); LYMPHOCYTES # (AUTO) 0.9 X10'3 (1.1-4.8); LYMPHOCYTES % (AUTO) 18.1 % (21-51); MEAN CORPUSCULAR HEMOGLOBIN 31.1 PG (27.0-31.0); MEAN CORPUSCULAR HGB CONC 33.7 g/dL (33.0-36.5); MEAN CORPUSCULAR VOLUME 92.2 FL (78-98); MEAN PLATELET VOLUME 6.2 FL (7.4-10.4); MONOCYTES # (AUTO) 0.4 X10'3 (0-0.9); NEUTROPHILS # (AUTO) 3.6 X10'3 (1.8-7.7); NEUTROPHILS % (AUTO) 69.5 % (42-75); PLATELET COUNT 140 X10'3 (140-440); RED BLOOD COUNT 3.93 X10'6 (4.70-6.10); WHITE BLOOD COUNT 5.2 X10'3 (4.5-11.0)
[2019-11-01] MEDS: aztreonam inj. 1,000 MG in normal saline 100ml IV soln 100 ML IV SCH ×3 (05:47→17:30)
--- NOTE | 2019-11-01 06:38 | NUR ---
Problems reprioritized. Patient report given, questions answered & plan of care reviewed with Paula PARADA.
--- NOTE | 2019-11-01 06:48 | NUR ---
Patient in room [facility]. I have received report from Loren PARADA and had the opportunity to ask questions and assume patient care.
--- NOTE | 2019-11-01 07:10 | NUR ---
Lab called with critical value of INR 5.4. Paged Dr Pascual to let him know and waiting for orders.
[2019-11-01] MEDS: loratadine 10mg tablet PO SCH (07:30)
[2019-11-01] MEDS: cyanocobalamin 500mcg tablet PO SCH (07:31)
[2019-11-01] MEDS: lactobacillus rhamnosus 10,000 MMU CELLS/CAPSULE PO SCH (07:31)
[2019-11-01] MEDS: multivitamins, therapeutics tablet PO SCH (07:31)
[2019-11-01] MEDS: vitamin D (cholecalciferol) 1,000 unit tablet PO SCH (07:31)
[2019-11-01] MEDS: buPROPion 100mg tablet PO SCH ×2 (07:31→22:19)
[2019-11-01] MEDS: docusate sod 100mg capsule PO SCH ×2 (07:31→22:19)
[2019-11-01] MEDS: tamsulosin 0.4mg capsule PO SCH (07:31)
[2019-11-01] MEDS: divalproex sodium 250mg tablet PO SCH ×2 (07:31→22:22)
[2019-11-01] MEDS: metoprolol tartrate 25mg tablet PO SCH (07:31)
[2019-11-01] MEDS: lisinopril 5mg tablet PO SCH (07:32)
[2019-11-01 08:00] VITALS: BP 131/74
[2019-11-01] MEDS: nystatin 15 GM powder TP SCH ×2 (08:00→22:22)
[2019-11-01] MEDS: polyvinyl alcohol ophthalmic drops 15ml bottle EACHEYE PRN (10:03)
[2019-11-01] MEDS: ferrous gluconate 324mg tablet PO SCH ×2 (10:24→17:47)
[2019-11-01 11:00] VITALS: BP 147/74
--- NOTE | 2019-11-01 12:01 | NUR ---
Initial: Pt admit with recurrent UTI with Proteus and LAVON possibly r/t UTI with CKD III. Pt currently on a regular diet documented with 75-100% PO intake meeting nutrient needs. LBM 10/31. Skin intact per [facility] notes. No nutrition diagnosis at this time. Will continue to follow. Recommendations: 1) Continue regular diet 2) Monitor renal labs and need for diet change to renal 3) Routine bowel care 4) Wt per rx Addendum: 11/01/19 at [address] Amended: Links added.
--- NOTE | 2019-11-01 18:35 | NUR ---
Problems reprioritized. Patient report given, questions answered & plan of care reviewed with Loren PARADA.
--- NOTE | 2019-11-01 19:28 | NUR ---
Patient in room [facility]. I have received report from Paula PARADA and had the opportunity to ask questions and assume patient care.
[2019-11-01 20:00] VITALS: BP 115/52
[2019-11-01] MEDS: traZODone 50mg tablet PO SCH (22:19)
[2019-11-01] MEDS: metoprolol tartrate 12.5mg (1/2 tablet) PO SCH (22:21)
[2019-11-01] MEDS: atorvastatin 20mg tablet PO SCH (22:21)
[2019-11-02] VITALS: BP 129/69
[2019-11-02] MEDS: aztreonam inj. 1,000 MG in normal saline 100ml IV soln 100 ML IV SCH ×3 (00:29→16:35)
--- NOTE | 2019-11-02 06:26 | NUR ---
Patient in room [facility]. I have received report from Loren PARADA and had the opportunity to ask questions and assume patient care.
--- NOTE | 2019-11-02 06:55 | NUR ---
Problems reprioritized. Patient report given, questions answered & plan of care reviewed with Julianna PARADA.
[2019-11-02 07:00] VITALS: BP 122/58
[2019-11-02] MEDS: metoprolol tartrate 12.5mg (1/2 tablet) PO SCH ×2 (07:58→21:54)
[2019-11-02] MEDS: nystatin 15 GM powder TP SCH ×2 (08:00→21:55)
[2019-11-02] MEDS: ferrous gluconate 324mg tablet PO SCH ×2 (08:00→16:35)
[2019-11-02] MEDS: lisinopril 2.5mg tablet PO SCH (08:00)
[2019-11-02] MEDS: multivitamins, therapeutics tablet PO SCH (08:00)
[2019-11-02] MEDS: cyanocobalamin 500mcg tablet PO SCH (08:00)
[2019-11-02] MEDS: docusate sod 100mg capsule PO SCH ×2 (08:01→21:54)
[2019-11-02] MEDS: loratadine 10mg tablet PO SCH (08:01)
[2019-11-02] MEDS: divalproex sodium 250mg tablet PO SCH ×2 (08:01→21:55)
[2019-11-02] MEDS: lactobacillus rhamnosus 10,000 MMU CELLS/CAPSULE PO SCH (08:01)
[2019-11-02] MEDS: buPROPion 100mg tablet PO SCH ×2 (08:01→21:55)
[2019-11-02] MEDS: tamsulosin 0.4mg capsule PO SCH (08:01)
[2019-11-02] MEDS: vitamin D (cholecalciferol) 1,000 unit tablet PO SCH (08:01)
[2019-11-02] MEDS: polyvinyl alcohol ophthalmic drops 15ml bottle EACHEYE PRN (08:07)
[2019-11-02 11:00] VITALS: BP 147/77
--- NOTE | 2019-11-02 18:45 | NUR ---
All cares given . Report given to Felipa PARADA
[2019-11-02 20:00] VITALS: BP 121/64
[2019-11-02] MEDS: traZODone 50mg tablet PO SCH (21:54)
[2019-11-02] MEDS: atorvastatin 20mg tablet PO SCH (21:54)
--- NOTE | 2019-11-02 22:52 | NUR ---
Patient in room [facility]. I have received report from KARMA Levine and had the opportunity to ask questions and assume patient care. Addendum: 11/02/19 at 2301 by Felipa Winston RN Amended: Links added.
[2019-11-03] VITALS: BP 123/65
[2019-11-03] MEDS: aztreonam inj. 1,000 MG in normal saline 100ml IV soln 100 ML IV SCH ×3 (00:09→16:23)
--- NOTE | 2019-11-03 06:17 | NUR ---
Problems reprioritized. Patient report given, questions answered & plan of care reviewed with KARMA Levine. Addendum: 11/03/19 at 0618 by Felipa Winston RN Amended: Links added.
--- NOTE | 2019-11-03 06:25 | NUR ---
Patient in room [facility]. I have received report from sandy PARADA and had the opportunity to ask questions and assume patient care.
[2019-11-03 07:00] VITALS: BP 162/77
[2019-11-03] MEDS: vitamin D (cholecalciferol) 1,000 unit tablet PO SCH (08:27)
[2019-11-03] MEDS: ferrous gluconate 324mg tablet PO SCH ×2 (08:27→16:23)
[2019-11-03] MEDS: tamsulosin 0.4mg capsule PO SCH (08:28)
[2019-11-03] MEDS: docusate sod 100mg capsule PO SCH ×2 (08:28→22:53)
[2019-11-03] MEDS: lactobacillus rhamnosus 10,000 MMU CELLS/CAPSULE PO SCH (08:28)
[2019-11-03] MEDS: multivitamins, therapeutics tablet PO SCH (08:28)
[2019-11-03] MEDS: cyanocobalamin 500mcg tablet PO SCH (08:28)
[2019-11-03] MEDS: metoprolol tartrate 12.5mg (1/2 tablet) PO SCH ×2 (08:28→22:53)
[2019-11-03] MEDS: loratadine 10mg tablet PO SCH (08:28)
[2019-11-03] MEDS: buPROPion 100mg tablet PO SCH ×2 (08:28→22:53)
[2019-11-03] MEDS: lisinopril 2.5mg tablet PO SCH (08:28)
[2019-11-03] MEDS: polyvinyl alcohol ophthalmic drops 15ml bottle EACHEYE PRN (08:29)
[2019-11-03] MEDS: divalproex sodium 250mg tablet PO SCH ×2 (08:29→22:53)
[2019-11-03] MEDS: nystatin 15 GM powder TP SCH ×2 (08:37→22:55)
[2019-11-03 11:00] VITALS: BP 127/82
--- NOTE | 2019-11-03 17:06 | NUR ---
patient seen by DR Prabhu Nieto, no new orders. patient will have last order of ABX today and will Be DC in am . family member is picking him up at 1030am to return to [facility]
[2019-11-03 18:00] VITALS: BP 143/75
[2019-11-03] MEDS ORDERED: warfarin 4mg tablet PO ONE (21:00)
[2019-11-03] MEDS: traZODone 50mg tablet PO SCH (22:53)
[2019-11-03] MEDS: atorvastatin 20mg tablet PO SCH (22:53)
[2019-11-04] VITALS: BP 150/72
[2019-11-04] MEDS: aztreonam inj. 1,000 MG in normal saline 100ml IV soln 100 ML IV SCH ×2 (00:11→07:47)
--- NOTE | 2019-11-04 06:26 | NUR ---
Problems reprioritized. Patient report given, questions answered & plan of care reviewed with Zenia PARADA.
[2019-11-04 07:00] VITALS: BP 138/80
[2019-11-04] MEDS: buPROPion 100mg tablet PO SCH (07:45)
[2019-11-04 07:46] VITALS: BP_SYST 138
[2019-11-04] MEDS: lisinopril 2.5mg tablet PO SCH (07:46)
[2019-11-04] MEDS: cyanocobalamin 500mcg tablet PO SCH (07:46)
[2019-11-04] MEDS: docusate sod 100mg capsule PO SCH (07:46)
[2019-11-04] MEDS: tamsulosin 0.4mg capsule PO SCH (07:46)
[2019-11-04] MEDS: lactobacillus rhamnosus 10,000 MMU CELLS/CAPSULE PO SCH (07:46)
[2019-11-04] MEDS: loratadine 10mg tablet PO SCH (07:46)
[2019-11-04] MEDS: ferrous gluconate 324mg tablet PO SCH (07:46)
[2019-11-04] MEDS: multivitamins, therapeutics tablet PO SCH (07:46)
[2019-11-04] MEDS: vitamin D (cholecalciferol) 1,000 unit tablet PO SCH (07:46)
[2019-11-04] MEDS: metoprolol tartrate 12.5mg (1/2 tablet) PO SCH (07:46)
[2019-11-04] MEDS: divalproex sodium 250mg tablet PO SCH (07:47)
[2019-11-04] MEDS: nystatin 15 GM powder TP SCH (07:47)
--- NOTE | 2019-11-04 12:54 | NUR ---
PT DISCHARGED IN STABLE CONDITION. LEFT FACILITY IN PRIVATE VEHICLE WITH DAUGHTER. ALL BELONGINGS IN HAND. FOLLOW UP INSTRUCTIONS GIVEN, ALL QUESTIONS ANSWERED. Addendum: 11/04/19 at 1255 by Kristy Camejo RN Amended: Links added.
== END 2019-11-04 10:50 | disposition home or self-care (01) | DRG 682 ==
LOC: ER 11:24 → ED HOLD 15:21 → SUR 3N 16:23
PROVIDERS: ADMIT Internal Medicine; ATTEND Family Medicine
DX: N17.9 Acute kidney failure, unspecified (principal); G93.41 Metabolic encephalopathy; N39.0 Urinary tract infection, site not specified; B96.4 Proteus (mirabilis) (morganii) as the cause of diseases classified elsewhere; N40.0 Benign prostatic hyperplasia without lower urinary tract symptoms; N18.3 Chronic kidney disease, stage 3 (moderate); E11.22 Type 2 diabetes mellitus with diabetic chronic kidney disease; E11.42 Type 2 diabetes mellitus with diabetic polyneuropathy; G30.9 Alzheimer's disease, unspecified; F02.80 Dementia in other diseases classified elsewhere, unspecified severity, without behavioral disturbance, psychotic disturbance, mood disturbance, and anxiety; E78.00 Pure hypercholesterolemia, unspecified; E78.5 Hyperlipidemia, unspecified; F32.9 Major depressive disorder, single episode, unspecified; I12.9 Hypertensive chronic kidney disease with stage 1 through stage 4 chronic kidney disease, or unspecified chronic kidney disease; J44.9 Chronic obstructive pulmonary disease, unspecified; Z79.01 Long term (current) use of anticoagulants; Z87.440 Personal history of urinary (tract) infections; Z86.73 Personal history of transient ischemic attack (TIA), and cerebral infarction without residual deficits; Z23 Encounter for immunization; Z88.1 Allergy status to other antibiotic agents; Z90.49 Acquired absence of other specified parts of digestive tract; Z79.899 Other long term (current) drug therapy
CPT/HCPCS: 36415; 71045; 76937; 80048; 80053; 81001; 82948; 83605; 83735; 83880; 84145; 85025; 85610; 85730; 87040; 87077; 87081; 87088; 87186; 93005; 94760; 96365; 97110; 97161; 97530; 97535; 99285; G0378; J1580; J1650; J2185; J3490; J7030; Q2037

== ENCOUNTER 2023-10-04 19:57 | Emergency (ER) | payer OTHER, MEDICARE ==
[~2023-10-04] VITALS: Ht 188 cm; Wt 100.0 kg
[~2023-10-04 19:57] MED LIST changes: +APIX5TAB3 PO; -ATOR80TA PO; +BUPR100T13 PO; -BUPR200T PO; +CARB1DRO51 LEFTEYE; +CHLO118L3 TOP; -CHOL100010 PO; +CHOL100025 PO; -COU3T PO; -CYAN1CRY PO; +CYAN500T46 PO; +DIVA-74 PO; +DOCU240C26 PO; -FERR236T3 PO; +FERR324T PO; -FERROUS GLUCONATE PO; +LACT1CAP26 PO; -LACTC PO; -MULT-382; +ROSU10TA2 PO; -VENL-191 PO; -WARF3TAB PO; -[UNRECOGNIZED DRUG - CODE] PO
--- NOTE | 2023-10-04 20:43 | NUR ---
c-collar applied per vo from sim carrera
[2023-10-04 20:59] LABS: BASOPHILS % (AUTO) 0 % (0-1); EOSINOPHILS # (AUTO) 0.3 X10'3 (0-0.9); EOSINOPHILS % (AUTO) 5.8 % (0-6); HEMATOCRIT 35.6 % (42.0-52.0); HEMOGLOBIN 11.7 g/dl (14.0-17.9); LYMPHOCYTES # (AUTO) 0.7 X10'3 (1.1-4.8); LYMPHOCYTES % (AUTO) 15.6 % (21-51); MEAN CORPUSCULAR HEMOGLOBIN 30.5 PG (27.0-31.0); MEAN CORPUSCULAR HGB CONC 32.8 g/dL (33.0-36.5); MEAN PLATELET VOLUME 6.1 FL (7.4-10.4); MONOCYTES # (AUTO) 0.3 X10'3 (0-0.9); MONOCYTES % (AUTO) 6.1 % (2-12); NEUTROPHILS # (AUTO) 3.5 X10'3 (1.8-7.7); NEUTROPHILS % (AUTO) 72.5 % (42-75); PLATELET COUNT 134 X10'3 (140-440); RED BLOOD COUNT 3.83 X10'6 (4.70-6.10); RED CELL DISTRIBUTION WIDTH 14.3 % (11.5-14.5); WHITE BLOOD COUNT 4.8 X10'3 (4.5-11.0)
[2023-10-04 21:17] LABS: ALANINE AMINOTRANSFERASE 31 U/L (12-78); ALBUMIN 3.3 G/DL (3.4-5.0); ALBUMIN/GLOBULIN RATIO 0.9 (1.1-1.5); ALKALINE PHOSPHATASE 115 IU/L (46-116); ANION GAP 5 (8-16); ASPARTATE AMINO TRANSFERASE 19 U/L (10-37); BILIRUBIN,TOTAL 0.3 MG/DL (0.1-1.0); BLOOD UREA NITROGEN 36 MG/DL (7-18); CALCIUM 8.9 MG/DL (8.5-10.1); CHLORIDE 105 MMOL/L (99-107); GLUCOSE 162 MG/DL (70-104); POTASSIUM 5.4 MMOL/L (3.5-5.1); SODIUM 139 MMOL/L (135-145); eCRCL 37 ML/MIN; eGFR 33 ML/MIN
[2023-10-04 21:25] LABS: MAGNESIUM 1.7 MG/DL (1.5-2.4); PRO BRAIN NATRIURETIC PEPTIDE 147 PG/ML (0-450)
[2023-10-04] MEDS ORDERED: TETanus/Pertussis (Acell)/Diphther VAC/PF (Tdap-Adult) 0.5ml syringe IMVAC ONE (21:35)
--- NOTE | 2023-10-04 23:13 | NUR ---
c-collar removed by sim carrera
--- NOTE | 2023-10-04 23:36 | NUR ---
pt changed in to gown placed into in-patient bed
[2023-10-05 06:03] VITALS: TEMP 98.6
[2023-10-05 08:07] VITALS: BP 130/63; PULSE 81; RESP 16; O2SAT 91
--- NOTE | 2023-10-05 08:14 | NUR ---
CALLED [facility] TO PROVIDE DISCHARGE INSTRUCTIONS TO [facility]. NO ANSWER, BUT LEFT DETAILED VOICE MESSAGE TO RETURN CALL.
== END 2023-10-05 08:17 ==
LOC: ER 19:57
DX: S01.01XA Laceration without foreign body of scalp, initial encounter (principal); W18.39XA Other fall on same level, initial encounter; Y93.89 Activity, other specified; Y92.89 Other specified places as the place of occurrence of the external cause; Y99.8 Other external cause status
CPT/HCPCS: 12002; 36415; 70450; 71045; 72125; 80053; 83735; 83880; 84484; 85025; 90471; 90715; 93005; 99285; J7030; L0172; A6449

== ENCOUNTER 2023-10-08 22:34 | Emergency (ER) | payer OTHER, MEDICARE ==
[~2023-10-08] VITALS: Ht 188 cm; Wt 102.8 kg
[2023-10-08 22:44] VITALS: TEMP 98.1
--- NOTE | 2023-10-08 22:49 | NUR ---
Patient to CT
--- NOTE | 2023-10-08 23:12 | NUR ---
Patient back from CT, left elbow cleaned and dressed. Left heel wound, cleaned and dressed.
--- NOTE | 2023-10-08 23:30 | NUR ---
Called report to Taj, verbalized understanding. Denies questions or concerns at this time.
--- NOTE | 2023-10-08 23:37 | NUR ---
Called and spoke with [facility], they state they will be arranging transport to get Roberto back to them. Spoke with Gely. Requested an update on EMS ETA, Gely verbalized understanding.
--- NOTE | 2023-10-08 23:42 | NUR ---
Patient updated on getting back to [facility], Verbalized understanding.
--- NOTE | 2023-10-08 23:56 | NUR ---
Warm blanket provided for patient, denies needs. Call light within reach.
--- NOTE | 2023-10-09 00:18 | NUR ---
Spoke to Roberto's sister who called for an update on Roberto getting back to [facility]. States she will call them back to help facilitate this.
[2023-10-09 00:27] VITALS: BP 133/82; PULSE 66; RESP 16; O2SAT 96
--- NOTE | 2023-10-09 00:36 | NUR ---
Spoke with Roberto's sister, the hospital will be arranging his ride back to [facility]. She verbalized understanding.
== END 2023-10-09 00:54 | disposition home or self-care (01) ==
LOC: ER 22:35
DX: S51.012A Laceration without foreign body of left elbow, initial encounter (principal); F03.90 Unspecified dementia, unspecified severity, without behavioral disturbance, psychotic disturbance, mood disturbance, and anxiety; W18.39XA Other fall on same level, initial encounter; Y93.89 Activity, other specified; Y92.89 Other specified places as the place of occurrence of the external cause; Y99.8 Other external cause status
CPT/HCPCS: 70450; 99284; A6222; A6258; A6402; A6449

== ENCOUNTER 2023-10-20 12:24 | Emergency (ER) | payer OTHER, MEDICARE ==
[~2023-10-20] VITALS: Ht 182.9 cm; Wt 102.0 kg
[2023-10-20 13:30] LABS: BASOPHILS % (AUTO) 0.5 % (0-1); EOSINOPHILS # (AUTO) 0.3 X10'3 (0-0.9); EOSINOPHILS % (AUTO) 6.5 % (0-6); HEMATOCRIT 35.3 % (42.0-52.0); HEMOGLOBIN 11.7 g/dl (14.0-17.9); LYMPHOCYTES % (AUTO) 18.6 % (21-51); MEAN CORPUSCULAR HEMOGLOBIN 30.5 PG (27.0-31.0); MEAN CORPUSCULAR HGB CONC 33.1 g/dL (33.0-36.5); MEAN CORPUSCULAR VOLUME 92.3 FL (78-98); MEAN PLATELET VOLUME 6.5 FL (7.4-10.4); MONOCYTES # (AUTO) 0.5 X10'3 (0-0.9); MONOCYTES % (AUTO) 10.2 % (2-12); NEUTROPHILS # (AUTO) 3.3 X10'3 (1.8-7.7); NEUTROPHILS % (AUTO) 64.2 % (42-75); PLATELET COUNT 173 X10'3 (140-440); RED BLOOD COUNT 3.83 X10'6 (4.70-6.10); WHITE BLOOD COUNT 5.1 X10'3 (4.5-11.0)
[2023-10-20 13:58] LABS: ALANINE AMINOTRANSFERASE 26 U/L (12-78); ALBUMIN/GLOBULIN RATIO 0.8 (1.1-1.5); ALKALINE PHOSPHATASE 112 IU/L (46-116); ANION GAP 6 (8-16); ASPARTATE AMINO TRANSFERASE 25 U/L (10-37); BILIRUBIN,TOTAL 0.3 MG/DL (0.1-1.0); BLOOD UREA NITROGEN 35 MG/DL (7-18); CALCIUM 8.8 MG/DL (8.5-10.1); CHLORIDE 107 MMOL/L (99-107); GLUCOSE 111 MG/DL (70-104); POTASSIUM 4.4 MMOL/L (3.5-5.1); PRO BRAIN NATRIURETIC PEPTIDE 188 PG/ML (0-450); SODIUM 140 MMOL/L (135-145); TOTAL CARBON DIOXIDE 27.5 MMOL/L (24-32)
[2023-10-20 14:04] LABS: BUN/CREATININE RATIO 20.1 (10.0-20.0); CREATININE 1.74 MG/DL (0.60-1.10); eGFR 38 ML/MIN
[2023-10-20] MEDS ORDERED: ipratropium/albuterol 3ml nebule NEB ONE (15:15)
[2023-10-20] MEDS ORDERED: amox tr/potassium clavulanate 875/125mg TAB PO ONE (15:15)
[2023-10-20] MEDS ORDERED: PRED20TA PO (15:22)
[2023-10-20] MEDS ORDERED: AMOX-117 PO (15:22)
[2023-10-20] MEDS ORDERED: predniSONE 20 mg tablet PO ONE (15:25)
[2023-10-20 15:47] VITALS: PULSE 63; RESP 12; O2SAT 93
[2023-10-20 15:54] VITALS: PULSE 66; RESP 13; O2SAT 100
[2023-10-20 17:19] VITALS: BP 134/78; PULSE 74; RESP 16; TEMP 98.1; O2SAT 96
== END 2023-10-20 17:19 | disposition home or self-care (01) ==
LOC: ER 12:24
DX: J20.9 Acute bronchitis, unspecified (principal)
CPT/HCPCS: 36415; 71045; 80053; 83880; 84484; 85025; 93005; 94640; 99285; J7512; 94760

== ENCOUNTER 2024-01-27 20:34 | Emergency (ER) | payer OTHER, MEDICARE ==
[~2024-01-27] VITALS: Ht 182.9 cm; Wt 81.8 kg
[2024-01-27 20:37] VITALS: TEMP 97.8
[2024-01-28 00:31] VITALS: BP 127/68; PULSE 66; RESP 18; O2SAT 95
== END 2024-01-28 00:33 | disposition home or self-care (01) ==
LOC: ER 20:35
DX: S30.810A Abrasion of lower back and pelvis, initial encounter (principal); I12.9 Hypertensive chronic kidney disease with stage 1 through stage 4 chronic kidney disease, or unspecified chronic kidney disease; E13.22 Other specified diabetes mellitus with diabetic chronic kidney disease; N18.9 Chronic kidney disease, unspecified; W18.39XA Other fall on same level, initial encounter; Y93.89 Activity, other specified; Y92.89 Other specified places as the place of occurrence of the external cause; Y99.8 Other external cause status; E78.00 Pure hypercholesterolemia, unspecified; J44.9 Chronic obstructive pulmonary disease, unspecified; Z88.1 Allergy status to other antibiotic agents; Z88.8 Allergy status to other drugs, medicaments and biological substances; Z79.899 Other long term (current) drug therapy; Z79.1 Long term (current) use of non-steroidal anti-inflammatories (NSAID); Z79.2 Long term (current) use of antibiotics
CPT/HCPCS: 72100; 99284

== ENCOUNTER 2024-07-29 10:32 | Inpatient (IN) | payer OTHER, MEDICARE ==
[~2024-07-29] VITALS: Ht 177.8 cm; Wt 87.3 kg
[~2024-07-29 10:32] MED LIST changes: -FERR324T PO; +FERR324T23 PO
[2024-07-29] MEDS ORDERED: cefTAZidime 1 GM/NS 100ML IVPB 100 ML IV ONE (13:45)
[2024-07-29 14:07] LABS: BASOPHILS % (AUTO) 0.4 % (0-1); EOSINOPHILS # (AUTO) 0.2 X10'3 (0-0.9); EOSINOPHILS % (AUTO) 4.9 % (0-6); HEMATOCRIT 32.3 % (42.0-52.0); HEMOGLOBIN 10.5 g/dl (14.0-17.9); LYMPHOCYTES # (AUTO) 1.2 X10'3 (1.1-4.8); LYMPHOCYTES % (AUTO) 24.2 % (21-51); MEAN CORPUSCULAR HGB CONC 32.6 g/dL (33.0-36.5); MEAN CORPUSCULAR VOLUME 91.9 FL (78-98); MEAN PLATELET VOLUME 6.3 FL (7.4-10.4); MONOCYTES # (AUTO) 0.4 X10'3 (0-0.9); NEUTROPHILS # (AUTO) 3.1 X10'3 (1.8-7.7); NEUTROPHILS % (AUTO) 61.5 % (42-75); PLATELET COUNT 113 X10'3 (140-440); RED BLOOD COUNT 3.52 X10'6 (4.70-6.10); RED CELL DISTRIBUTION WIDTH 14.1 % (11.5-14.5)
[2024-07-29 14:12] LABS: ALBUMIN 2.9 G/DL (3.4-5.0); ANION GAP 8 (8-16); BLOOD UREA NITROGEN 48 MG/DL (7-18); BUN/CREATININE RATIO 18.9 (10.0-20.0); CALCIUM 9.4 MG/DL (8.5-10.1); CHLORIDE 108 MMOL/L (99-107); CREATININE 2.54 MG/DL (0.60-1.10); GLUCOSE 68 MG/DL (70-104); POTASSIUM 4.8 MMOL/L (3.5-5.1); SODIUM 144 MMOL/L (135-145); TOTAL CARBON DIOXIDE 27.7 MMOL/L (24-32); eCRCL 26 ML/MIN; eGFR 25 ML/MIN
[2024-07-29] MEDS: MEROPENEM 1GM/NS 100ML IVPB 100 ML IV ONE (14:58)
[2024-07-29] MEDS ORDERED: potassium Cl 40MEQ/1/2NS 520ml 520 ML IV PRN (15:00)
[2024-07-29] MEDS ORDERED: mag hydrox/Alum hydrox/simeth 30ml oral suspension PO PRN (15:00)
[2024-07-29] MEDS ORDERED: magnesium sulf-water 4G/100mL 100 ML IV PRN (15:00)
[2024-07-29] MEDS ORDERED: magnesium Cl slow-release 64mg tablet PO PRN (15:00)
[2024-07-29] MEDS ORDERED: docusate sod 100mg capsule PO PRN (15:00)
[2024-07-29] MEDS ORDERED: ondansetron/PF 4mg/2ml inj IV PRN (15:00)
[2024-07-29] MEDS ORDERED: magnesium sulf-water 2g/50mL 50 ML IV PRN (15:00)
[2024-07-29] MEDS ORDERED: acetaminophen 325mg tablet PO PRN (15:00)
[2024-07-29] MEDS ORDERED: potassium Cl 20 mEq SR tablet PO PRN ×2 (15:00)
[2024-07-29] MEDS ORDERED: morphine 2 MG/ML inj. syringe IV PRN ×2 (15:00)
[2024-07-29] MEDS: normal saline 1000ml 1,000 ML IV SCH (15:45)
[2024-07-29 16:12] LABS: PRO BRAIN NATRIURETIC PEPTIDE 167 PG/ML (0-450); THYROID STIMULATING HORMONE 0.92 ulU/ml (0.34-4.50)
[2024-07-29 16:18] LABS: BILIRUBIN,URINE NEGATIVE (Neg); CLARITY,URINE CLOUDY (Clear); COLOR,URINE YELLOW (Yellow); GLUCOSE, URINE NEGATIVE (Neg); KETONES,URINE NEGATIVE (Neg); LEUKOCYTE ESTERASE ,URINE LARGE (Neg); OCCULT BLOOD,URINE TRACE-INTACT (Neg); PROTEIN,URINE NEGATIVE (Neg); UROBILINOGEN,URINE 0.2 E.U/dL (0.2-1.0)
[2024-07-29 16:23] LABS: UA COLLECTION TYPE VOIDED
[2024-07-29 16:27] LABS: NITRITES, URINE NEGATIVE (Neg)
[2024-07-29 16:29] LABS: WBC,URINE 30-50 /HPF (0-4)
[2024-07-29 16:30] LABS: BACTERIA,URINE FEW /HPF (Neg); RBC,URINE 0-2 /HPF (0-2)
[2024-07-29 16:31] LABS: SQUAMOUS EPITHELIAL CELL,UR NONE SEEN /LPF (FEW)
[2024-07-29 16:46] LABS: ALANINE AMINOTRANSFERASE 29 U/L (12-78); ALBUMIN/GLOBULIN RATIO 0.8 (1.1-1.5); ALKALINE PHOSPHATASE 327 IU/L (46-116); ASPARTATE AMINO TRANSFERASE 41 U/L (10-37); BILIRUBIN,DIRECT 0.1 MG/DL (0-0.3); BILIRUBIN,TOTAL 0.3 MG/DL (0.1-1.0); TOTAL PROTEIN 6.7 G/DL (6.4-8.2)
[2024-07-29 17:35] VITALS: BP 113/56; PULSE 85; RESP 17; TEMP 98.2; O2SAT 95
[2024-07-29] MEDS ORDERED: dextrose 50%-water 50ml dispensing syringe IV PRN (18:55)
[2024-07-29] MEDS ORDERED: glucagon, human recombinant 1mg kit SUBCUT PRN (18:55)
[2024-07-29] MEDS ORDERED: DEXTROSE 15 GM of carb/4 tabs (each vial/BOTTLE has 4 tablets) PO PRN ×2 (18:55)
[2024-07-29 19:31] VITALS: RESP 16; O2SAT 94
[2024-07-29] MEDS: K and/or MAG REPLACEMENT MC SCH (20:00)
[2024-07-29] MEDS ORDERED: heparin, porcine 5000 units/ml vial SQ SCH (20:00)
[2024-07-29] MEDS: CARBOXYMETHYLCELLULOSE SODIUM EACHEYE SCH (20:00)
[2024-07-29] MEDS ORDERED: CARBOXYMETHYLCELLULOSE SODIUM EACHEYE SCH (20:00)
[2024-07-29] MEDS: buPROPion 100mg tablet PO SCH (20:30)
[2024-07-29] MEDS: metoprolol tartrate 12.5mg (1/2 tablet) PO SCH (20:30)
[2024-07-29] MEDS: traZODone 50mg tablet PO SCH (20:31)
[2024-07-29] MEDS: apixaban 5mg tablet PO SCH (20:31)
[2024-07-29] MEDS: dextrose 50%-water 50ml dispensing syringe IV PRN (20:33)
[2024-07-29 22:41] VITALS: BP 117/63; PULSE 88; RESP 17; TEMP 98; O2SAT 98
[2024-07-29] MEDS: MEROPENEM 1GM/NS 100ML IVPB 100 ML IV SCH (23:23)
[2024-07-30 06:00] VITALS: BP 108/56; PULSE 88; RESP 16; TEMP 98.5; O2SAT 96
[2024-07-30 06:28] LABS: BASOPHILS % (AUTO) 0.3 % (0-1); EOSINOPHILS # (AUTO) 0.2 X10'3 (0-0.9); EOSINOPHILS % (AUTO) 5.4 % (0-6); HEMATOCRIT 31.5 % (42.0-52.0); HEMOGLOBIN 10.3 g/dl (14.0-17.9); LYMPHOCYTES # (AUTO) 1.1 X10'3 (1.1-4.8); LYMPHOCYTES % (AUTO) 27.3 % (21-51); MEAN CORPUSCULAR HEMOGLOBIN 30.1 PG (27.0-31.0); MEAN CORPUSCULAR HGB CONC 32.8 g/dL (33.0-36.5); MEAN CORPUSCULAR VOLUME 91.8 FL (78-98); MEAN PLATELET VOLUME 6.7 FL (7.4-10.4); MONOCYTES # (AUTO) 0.4 X10'3 (0-0.9); MONOCYTES % (AUTO) 10.4 % (2-12); NEUTROPHILS # (AUTO) 2.3 X10'3 (1.8-7.7); NEUTROPHILS % (AUTO) 56.6 % (42-75); PLATELET COUNT 107 X10'3 (140-440); RED BLOOD COUNT 3.43 X10'6 (4.70-6.10); RED CELL DISTRIBUTION WIDTH 14.4 % (11.5-14.5); WHITE BLOOD COUNT 4.1 X10'3 (4.5-11.0)
[2024-07-30 06:44] LABS: ALANINE AMINOTRANSFERASE 27 U/L (12-78); ALBUMIN 2.8 G/DL (3.4-5.0); ALBUMIN/GLOBULIN RATIO 0.8 (1.1-1.5); ALKALINE PHOSPHATASE 307 IU/L (46-116); ANION GAP 6 (8-16); ASPARTATE AMINO TRANSFERASE 43 U/L (10-37); BILIRUBIN,TOTAL 0.4 MG/DL (0.1-1.0); BLOOD UREA NITROGEN 38 MG/DL (7-18); BUN/CREATININE RATIO 16.9 (10.0-20.0); CALCIUM 9.5 MG/DL (8.5-10.1); CHLORIDE 109 MMOL/L (99-107); CREATININE 2.25 MG/DL (0.60-1.10); GLUCOSE 51 MG/DL (70-104); MAGNESIUM 1.6 MG/DL (1.5-2.4); POTASSIUM 4.7 MMOL/L (3.5-5.1); SODIUM 143 MMOL/L (135-145); TOTAL CARBON DIOXIDE 27.7 MMOL/L (24-32); TOTAL PROTEIN 6.2 G/DL (6.4-8.2); eCRCL 29 ML/MIN; eGFR 28 ML/MIN
[2024-07-30 08:00] VITALS: RESP 16; O2SAT 96
[2024-07-30] MEDS: ROSUVASTATIN CALCIUM 5 MG TABLET PO SCH (08:04)
[2024-07-30] MEDS: tamsulosin 0.4mg capsule PO SCH (08:04)
[2024-07-30] MEDS: multivitamins, therapeutics tablet PO SCH (08:04)
[2024-07-30] MEDS: lisinopril 2.5mg tablet PO SCH (08:04)
[2024-07-30 10:00] VITALS: BP 114/56; PULSE 82; RESP 18; TEMP 98.5; O2SAT 90
[2024-07-30] MEDS: dextrose 5%-water 1,000 ML IV SCH (14:29)
[2024-07-30 18:00] VITALS: BP 124/59; PULSE 70; RESP 18; TEMP 98.6; O2SAT 95
[2024-07-30 22:00] VITALS: BP 128/64; PULSE 80; RESP 16; TEMP 98; O2SAT 94
[2024-07-31] MEDS: traMADol 50MG tablet PO ONE (03:09)
[2024-07-31 06:35] VITALS: BP 131/64; PULSE 73; RESP 17; TEMP 97.2; O2SAT 94
[2024-07-31 06:49] LABS: BASOPHILS % (AUTO) 0.5 % (0-1); EOSINOPHILS # (AUTO) 0.3 X10'3 (0-0.9); EOSINOPHILS % (AUTO) 6.1 % (0-6); HEMATOCRIT 32.4 % (42.0-52.0); HEMOGLOBIN 10.6 g/dl (14.0-17.9); LYMPHOCYTES # (AUTO) 1.3 X10'3 (1.1-4.8); LYMPHOCYTES % (AUTO) 30.5 % (21-51); MEAN CORPUSCULAR HEMOGLOBIN 30.1 PG (27.0-31.0); MEAN CORPUSCULAR HGB CONC 32.8 g/dL (33.0-36.5); MEAN CORPUSCULAR VOLUME 91.6 FL (78-98); MEAN PLATELET VOLUME 6.8 FL (7.4-10.4); MONOCYTES # (AUTO) 0.4 X10'3 (0-0.9); MONOCYTES % (AUTO) 9.8 % (2-12); NEUTROPHILS # (AUTO) 2.3 X10'3 (1.8-7.7); NEUTROPHILS % (AUTO) 53.1 % (42-75); PLATELET COUNT 114 X10'3 (140-440); RED BLOOD COUNT 3.54 X10'6 (4.70-6.10); WHITE BLOOD COUNT 4.3 X10'3 (4.5-11.0)
[2024-07-31 06:52] LABS: ALANINE AMINOTRANSFERASE 27 U/L (12-78); ALBUMIN 2.9 G/DL (3.4-5.0); ALBUMIN/GLOBULIN RATIO 0.8 (1.1-1.5); ALKALINE PHOSPHATASE 312 IU/L (46-116); ANION GAP 5 (8-16); ASPARTATE AMINO TRANSFERASE 40 U/L (10-37); BILIRUBIN,TOTAL 0.3 MG/DL (0.1-1.0); BLOOD UREA NITROGEN 35 MG/DL (7-18); CALCIUM 9.6 MG/DL (8.5-10.1); CHLORIDE 106 MMOL/L (99-107); CREATININE 2.06 MG/DL (0.60-1.10); GLUCOSE 84 MG/DL (70-104); MAGNESIUM 1.6 MG/DL (1.5-2.4); SODIUM 140 MMOL/L (135-145); TOTAL CARBON DIOXIDE 28.6 MMOL/L (24-32); TOTAL PROTEIN 6.6 G/DL (6.4-8.2); eCRCL 32 ML/MIN; eGFR 32 ML/MIN
[2024-07-31 08:00] VITALS: RESP 18
[2024-07-31 08:55] VITALS: BP 118/56; PULSE 85
[2024-07-31 10:20] VITALS: BP 133/74; PULSE 80; RESP 17; TEMP 97.5; O2SAT 94
[2024-07-31 18:00] VITALS: BP 111/61; PULSE 73; RESP 13; TEMP 98.9; O2SAT 98
[2024-07-31] MEDS: MEROPENEM 1GM/NS 100ML IVPB 100 ML IV SCH (20:32)
[2024-07-31 22:00] VITALS: BP 136/64; PULSE 80; RESP 20; TEMP 98.2; O2SAT 97
[2024-08-01 05:54] LABS: BASOPHILS % (AUTO) 0.3 % (0-1); EOSINOPHILS # (AUTO) 0.3 X10'3 (0-0.9); EOSINOPHILS % (AUTO) 6.6 % (0-6); HEMOGLOBIN 10.4 g/dl (14.0-17.9); LYMPHOCYTES # (AUTO) 1.5 X10'3 (1.1-4.8); MEAN CORPUSCULAR HEMOGLOBIN 29.9 PG (27.0-31.0); MEAN CORPUSCULAR HGB CONC 32.6 g/dL (33.0-36.5); MEAN CORPUSCULAR VOLUME 91.6 FL (78-98); MEAN PLATELET VOLUME 6.5 FL (7.4-10.4); MONOCYTES # (AUTO) 0.4 X10'3 (0-0.9); MONOCYTES % (AUTO) 9.3 % (2-12); NEUTROPHILS # (AUTO) 2.5 X10'3 (1.8-7.7); NEUTROPHILS % (AUTO) 52.8 % (42-75); PLATELET COUNT 115 X10'3 (140-440); RED BLOOD COUNT 3.49 X10'6 (4.70-6.10); RED CELL DISTRIBUTION WIDTH 13.8 % (11.5-14.5); WHITE BLOOD COUNT 4.8 X10'3 (4.5-11.0)
[2024-08-01 06:00] VITALS: BP 121/61; PULSE 71; RESP 18; TEMP 98.3; O2SAT 92
[2024-08-01 06:00] LABS: ALANINE AMINOTRANSFERASE 31 U/L (12-78); ALBUMIN 2.8 G/DL (3.4-5.0); ALBUMIN/GLOBULIN RATIO 0.8 (1.1-1.5); ALKALINE PHOSPHATASE 299 IU/L (46-116); ANION GAP 6 (8-16); ASPARTATE AMINO TRANSFERASE 41 U/L (10-37); BILIRUBIN,TOTAL 0.3 MG/DL (0.1-1.0); BLOOD UREA NITROGEN 36 MG/DL (7-18); BUN/CREATININE RATIO 17.6 (10.0-20.0); CALCIUM 9.5 MG/DL (8.5-10.1); CHLORIDE 105 MMOL/L (99-107); CREATININE 2.04 MG/DL (0.60-1.10); GLUCOSE 87 MG/DL (70-104); MAGNESIUM 1.6 MG/DL (1.5-2.4); POTASSIUM 5.4 MMOL/L (3.5-5.1); SODIUM 139 MMOL/L (135-145); TOTAL CARBON DIOXIDE 27.7 MMOL/L (24-32); TOTAL PROTEIN 6.3 G/DL (6.4-8.2); eCRCL 32 ML/MIN; eGFR 32 ML/MIN
[2024-08-01 10:00] VITALS: BP 106/58; PULSE 70; RESP 18; TEMP 98; O2SAT 96
[2024-08-01 18:00] VITALS: BP 130/61; PULSE 75; RESP 18; TEMP 98.2; O2SAT 94
[2024-08-01 20:00] VITALS: RESP 18; O2SAT 94
[2024-08-02 06:00] VITALS: BP 150/67; PULSE 75; RESP 18; TEMP 97.6; O2SAT 96
[2024-08-02 06:55] LABS: BASOPHILS % (AUTO) 0.8 % (0-1); EOSINOPHILS # (AUTO) 0.3 X10'3 (0-0.9); EOSINOPHILS % (AUTO) 7.1 % (0-6); HEMATOCRIT 32.9 % (42.0-52.0); HEMOGLOBIN 10.7 g/dl (14.0-17.9); LYMPHOCYTES # (AUTO) 1.4 X10'3 (1.1-4.8); LYMPHOCYTES % (AUTO) 30.2 % (21-51); MEAN CORPUSCULAR HEMOGLOBIN 29.8 PG (27.0-31.0); MEAN CORPUSCULAR HGB CONC 32.6 g/dL (33.0-36.5); MEAN CORPUSCULAR VOLUME 91.3 FL (78-98); MEAN PLATELET VOLUME 6.6 FL (7.4-10.4); MONOCYTES # (AUTO) 0.4 X10'3 (0-0.9); MONOCYTES % (AUTO) 9.1 % (2-12); NEUTROPHILS # (AUTO) 2.4 X10'3 (1.8-7.7); NEUTROPHILS % (AUTO) 52.8 % (42-75); PLATELET COUNT 118 X10'3 (140-440); RED BLOOD COUNT 3.61 X10'6 (4.70-6.10); RED CELL DISTRIBUTION WIDTH 13.6 % (11.5-14.5); WHITE BLOOD COUNT 4.6 X10'3 (4.5-11.0)
[2024-08-02 07:08] LABS: ALANINE AMINOTRANSFERASE 41 U/L (12-78); ALBUMIN 2.9 G/DL (3.4-5.0); ALBUMIN/GLOBULIN RATIO 0.8 (1.1-1.5); ALKALINE PHOSPHATASE 306 IU/L (46-116); ANION GAP 7 (8-16); ASPARTATE AMINO TRANSFERASE 47 U/L (10-37); BILIRUBIN,TOTAL 0.3 MG/DL (0.1-1.0); BLOOD UREA NITROGEN 39 MG/DL (7-18); BUN/CREATININE RATIO 18.7 (10.0-20.0); CALCIUM 9.6 MG/DL (8.5-10.1); CHLORIDE 106 MMOL/L (99-107); CREATININE 2.09 MG/DL (0.60-1.10); GLUCOSE 84 MG/DL (70-104); MAGNESIUM 1.6 MG/DL (1.5-2.4); SODIUM 141 MMOL/L (135-145); TOTAL CARBON DIOXIDE 28.2 MMOL/L (24-32); TOTAL PROTEIN 6.6 G/DL (6.4-8.2); eCRCL 31 ML/MIN; eGFR 31 ML/MIN
[2024-08-02 10:00] VITALS: BP 107/59; PULSE 84; RESP 16; TEMP 97.8; O2SAT 95
[2024-08-02 18:00] VITALS: BP 125/59; PULSE 78; RESP 16; TEMP 98.2; O2SAT 94
[2024-08-02 22:00] VITALS: BP 107/57; PULSE 85; RESP 16; TEMP 97.7; O2SAT 96
[2024-08-02 22:09] VITALS: RESP 16; O2SAT 94
[2024-08-03] MEDS: MEROPENEM 1GM/NS 100ML IVPB 100 ML IV SCH (04:59)
[2024-08-03 06:00] VITALS: BP 106/54; PULSE 73; RESP 17; TEMP 98.2; O2SAT 93
[2024-08-03 06:08] LABS: BASOPHILS % (AUTO) 0.2 % (0-1); EOSINOPHILS # (AUTO) 0.3 X10'3 (0-0.9); EOSINOPHILS % (AUTO) 6.6 % (0-6); HEMATOCRIT 31.7 % (42.0-52.0); HEMOGLOBIN 10.3 g/dl (14.0-17.9); LYMPHOCYTES # (AUTO) 1.5 X10'3 (1.1-4.8); MEAN CORPUSCULAR HEMOGLOBIN 30.5 PG (27.0-31.0); MEAN CORPUSCULAR HGB CONC 32.4 g/dL (33.0-36.5); MEAN CORPUSCULAR VOLUME 94.2 FL (78-98); MONOCYTES # (AUTO) 0.4 X10'3 (0-0.9); MONOCYTES % (AUTO) 9.1 % (2-12); NEUTROPHILS # (AUTO) 2.6 X10'3 (1.8-7.7); NEUTROPHILS % (AUTO) 53.1 % (42-75); PLATELET COUNT 113 X10'3 (140-440); RED BLOOD COUNT 3.36 X10'6 (4.70-6.10); RED CELL DISTRIBUTION WIDTH 14.1 % (11.5-14.5); WHITE BLOOD COUNT 4.8 X10'3 (4.5-11.0)
[2024-08-03 06:12] LABS: ALANINE AMINOTRANSFERASE 71 U/L (12-78); ALBUMIN 2.7 G/DL (3.4-5.0); ALBUMIN/GLOBULIN RATIO 0.8 (1.1-1.5); ALKALINE PHOSPHATASE 298 IU/L (46-116); ANION GAP 8 (8-16); ASPARTATE AMINO TRANSFERASE 68 U/L (10-37); BILIRUBIN,TOTAL 0.3 MG/DL (0.1-1.0); BLOOD UREA NITROGEN 46 MG/DL (7-18); BUN/CREATININE RATIO 22.3 (10.0-20.0); CALCIUM 9.6 MG/DL (8.5-10.1); CHLORIDE 105 MMOL/L (99-107); CREATININE 2.06 MG/DL (0.60-1.10); GLUCOSE 83 MG/DL (70-104); POTASSIUM 4.9 MMOL/L (3.5-5.1); SODIUM 140 MMOL/L (135-145); TOTAL PROTEIN 6.2 G/DL (6.4-8.2); eCRCL 32 ML/MIN; eGFR 32 ML/MIN
[2024-08-03 06:26] VITALS: BP 106/54; PULSE 73; RESP 17; TEMP 98.2; O2SAT 93
[2024-08-03 10:00] VITALS: BP 101/59; PULSE 79; RESP 18; TEMP 98.5; O2SAT 96
[2024-08-03 18:00] VITALS: BP 115/71; PULSE 70; RESP 16; TEMP 97.9; O2SAT 93
[2024-08-03 22:00] VITALS: BP 143/62; PULSE 87; RESP 16; TEMP 98.7; O2SAT 95
[2024-08-04 06:00] VITALS: BP 106/67
[2024-08-04 10:00] VITALS: BP 96/62; PULSE 87; RESP 18; TEMP 97.3; O2SAT 95
[2024-08-04 18:00] VITALS: BP 112/55; PULSE 72; RESP 18; TEMP 98.4; O2SAT 100
[2024-08-04 22:00] VITALS: BP 112/58; PULSE 76; RESP 14; TEMP 97.5; O2SAT 96
[2024-08-05 06:00] VITALS: BP 116/63; PULSE 78; RESP 16; TEMP 98.6; O2SAT 94
[2024-08-05 07:00] VITALS: BP 102/60; PULSE 80
[2024-08-05 07:40] VITALS: RESP 16; O2SAT 94
[2024-08-05 07:49] LABS: BASOPHILS % (AUTO) 0.5 % (0-1); EOSINOPHILS # (AUTO) 0.3 X10'3 (0-0.9); EOSINOPHILS % (AUTO) 6.5 % (0-6); HEMATOCRIT 30.7 % (42.0-52.0); HEMOGLOBIN 10.4 g/dl (14.0-17.9); LYMPHOCYTES # (AUTO) 1.7 X10'3 (1.1-4.8); LYMPHOCYTES % (AUTO) 30.7 % (21-51); MEAN CORPUSCULAR HEMOGLOBIN 30.8 PG (27.0-31.0); MEAN CORPUSCULAR VOLUME 90.7 FL (78-98); MEAN PLATELET VOLUME 7.1 FL (7.4-10.4); MONOCYTES # (AUTO) 0.5 X10'3 (0-0.9); MONOCYTES % (AUTO) 9.7 % (2-12); NEUTROPHILS # (AUTO) 2.9 X10'3 (1.8-7.7); NEUTROPHILS % (AUTO) 52.6 % (42-75); PLATELET COUNT 137 X10'3 (140-440); RED BLOOD COUNT 3.39 X10'6 (4.70-6.10); RED CELL DISTRIBUTION WIDTH 13.7 % (11.5-14.5); WHITE BLOOD COUNT 5.4 X10'3 (4.5-11.0)
[2024-08-05 08:00] VITALS: BP_SYST 102; PULSE 80
[2024-08-05 08:16] LABS: GLUCOSE 87 MG/DL (70-104)
[2024-08-05 08:17] LABS: ALANINE AMINOTRANSFERASE 69 U/L (12-78); ALBUMIN 2.8 G/DL (3.4-5.0); ALBUMIN/GLOBULIN RATIO 0.8 (1.1-1.5); ALKALINE PHOSPHATASE 312 IU/L (46-116); ANION GAP 7 (8-16); ASPARTATE AMINO TRANSFERASE 52 U/L (10-37); BILIRUBIN,TOTAL 0.3 MG/DL (0.1-1.0); BLOOD UREA NITROGEN 49 MG/DL (7-18); BUN/CREATININE RATIO 22.1 (10.0-20.0); CALCIUM 9.4 MG/DL (8.5-10.1); CHLORIDE 106 MMOL/L (99-107); CREATININE 2.22 MG/DL (0.60-1.10); POTASSIUM 4.5 MMOL/L (3.5-5.1); SODIUM 142 MMOL/L (135-145); TOTAL CARBON DIOXIDE 29.5 MMOL/L (24-32); TOTAL PROTEIN 6.5 G/DL (6.4-8.2); eCRCL 29 ML/MIN; eGFR 29 ML/MIN
== END 2024-08-05 09:40 | disposition home or self-care (01) | DRG 698 ==
LOC: ER 10:33 → ED HOLD 15:06 → ORTHO 4S 17:25
PROVIDERS: ADMIT Family Medicine; ATTEND Family Medicine
DX: T83.518A Infection and inflammatory reaction due to other urinary catheter, initial encounter (principal); G93.41 Metabolic encephalopathy; N39.0 Urinary tract infection, site not specified; N18.4 Chronic kidney disease, stage 4 (severe); C91.10 Chronic lymphocytic leukemia of B-cell type not having achieved remission; E11.22 Type 2 diabetes mellitus with diabetic chronic kidney disease; I12.9 Hypertensive chronic kidney disease with stage 1 through stage 4 chronic kidney disease, or unspecified chronic kidney disease; E78.00 Pure hypercholesterolemia, unspecified; J44.9 Chronic obstructive pulmonary disease, unspecified; E11.42 Type 2 diabetes mellitus with diabetic polyneuropathy; Z66 Do not resuscitate; N40.0 Benign prostatic hyperplasia without lower urinary tract symptoms; F32.A Depression, unspecified; F03.90 Unspecified dementia, unspecified severity, without behavioral disturbance, psychotic disturbance, mood disturbance, and anxiety; Y84.6 Urinary catheterization as the cause of abnormal reaction of the patient, or of later complication, without mention of misadventure at the time of the procedure; E78.5 Hyperlipidemia, unspecified; I48.91 Unspecified atrial fibrillation; Z86.73 Personal history of transient ischemic attack (TIA), and cerebral infarction without residual deficits; Z79.899 Other long term (current) drug therapy; Z88.1 Allergy status to other antibiotic agents; Z88.8 Allergy status to other drugs, medicaments and biological substances; Z79.01 Long term (current) use of anticoagulants; Z87.440 Personal history of urinary (tract) infections; Y92.89 Other specified places as the place of occurrence of the external cause; B96.5 Pseudomonas (aeruginosa) (mallei) (pseudomallei) as the cause of diseases classified elsewhere
CPT/HCPCS: 36415; 71045; 74176; 80048; 80053; 80076; 81001; 82140; 82948; 83036; 83605; 83735; 83880; 84145; 84443; 85025; 87040; 87081; 87088; 97110; 97161; 97530; 99285; A4615; A6590; G0378; J2185; J3490; J7030; J7070

== ENCOUNTER 2024-11-09 22:08 | Inpatient (IN) | payer OTHER, MEDICARE ==
[~2024-11-09] VITALS: Ht 182.9 cm; Wt 68.0 kg
[~2024-11-09 22:08] MED LIST changes: -CHLO118L3 TOP
[2024-11-09 22:33] LABS: BASOPHILS % (AUTO) 0.5 % (0-1); EOSINOPHILS # (AUTO) 0.2 X10'3 (0-0.9); EOSINOPHILS % (AUTO) 6.1 % (0-6); LYMPHOCYTES # (AUTO) 1.2 X10'3 (1.1-4.8); LYMPHOCYTES % (AUTO) 29.1 % (21-51); MEAN CORPUSCULAR HEMOGLOBIN 30.6 PG (27.0-31.0); MEAN CORPUSCULAR HGB CONC 33.3 g/dL (33.0-36.5); MEAN CORPUSCULAR VOLUME 91.8 FL (78-98); MEAN PLATELET VOLUME 5.6 FL (7.4-10.4); MONOCYTES # (AUTO) 0.4 X10'3 (0-0.9); MONOCYTES % (AUTO) 9.1 % (2-12); NEUTROPHILS # (AUTO) 2.2 X10'3 (1.8-7.7); NEUTROPHILS % (AUTO) 55.2 % (42-75); PLATELET COUNT 120 X10'3 (140-440); RED BLOOD COUNT 3.27 X10'6 (4.70-6.10)
[2024-11-09] MEDS: normal saline 1000ml 1,000 ML IV ONE (22:36)
[2024-11-09 22:49] LABS: ALANINE AMINOTRANSFERASE 18 U/L (12-78); ALBUMIN/GLOBULIN RATIO 0.7 (1.1-1.5); ALKALINE PHOSPHATASE 477 IU/L (46-116); ANION GAP 10 (8-16); ASPARTATE AMINO TRANSFERASE 37 U/L (10-37); BILIRUBIN,TOTAL 0.4 MG/DL (0.1-1.0); BLOOD UREA NITROGEN 58 MG/DL (7-18); BUN/CREATININE RATIO 27.6 (10.0-20.0); CALCIUM 10.1 MG/DL (8.5-10.1); CHLORIDE 106 MMOL/L (99-107); GLUCOSE 50 MG/DL (70-104); POTASSIUM 5.1 MMOL/L (3.5-5.1); SODIUM 142 MMOL/L (135-145); TOTAL CARBON DIOXIDE 26.4 MMOL/L (24-32); TOTAL PROTEIN 7.4 G/DL (6.4-8.2); eCRCL 29 ML/MIN; eGFR 31 ML/MIN
[2024-11-09] MEDS: dextrose 50%-water 50ml dispensing syringe IV ONE (23:28)
[2024-11-10] VITALS (11 sets, daily range): BP systolic 93–107; BP diastolic 44–51; PULSE 79–101; RESP 13–18; TEMP 97.3–98.3; O2SAT 92–97
[2024-11-10 02:19] LABS: BILIRUBIN,URINE NEGATIVE (Neg); CLARITY,URINE CLOUDY (Clear); COLOR,URINE YELLOW (Yellow); GLUCOSE, URINE NEGATIVE (Neg); KETONES,URINE TRACE mg/dl (Neg); LEUKOCYTE ESTERASE ,URINE LARGE (Neg); NITRITES, URINE POSITIVE (Neg); OCCULT BLOOD,URINE LARGE (Neg); PROTEIN,URINE TRACE mg/dl (Neg); UROBILINOGEN,URINE 0.2 E.U/dL (0.2-1.0)
[2024-11-10 02:26] LABS: UA COLLECTION TYPE VOIDED
[2024-11-10 02:27] LABS: BACTERIA,URINE 2+ /HPF (Neg); RBC,URINE 50-100 /HPF (0-2); SQUAMOUS EPITHELIAL CELL,UR FEW /LPF (FEW); WBC,URINE 20-30 /HPF (0-4)
[2024-11-10] MEDS ORDERED: gentamicin in saline, iso-osm 80 MG/50 ML premix IV ONE (02:40)
[2024-11-10] MEDS ORDERED: DABI150C PO (02:55)
[2024-11-10] MEDS ORDERED: BISA-78 PO (02:55)
[2024-11-10] MEDS ORDERED: ATOR10TA70 PO (02:56)
[2024-11-10] MEDS ORDERED: ESCI-8 PO (02:57)
[2024-11-10] MEDS ORDERED: potassium Cl 40MEQ/1/2NS 520ml 520 ML IV PRN (03:20)
[2024-11-10] MEDS ORDERED: potassium Cl 20 mEq SR tablet PO PRN ×2 (03:20)
[2024-11-10] MEDS ORDERED: magnesium hydroxide 30ml (MOM) UD suspension PO PRN (03:20)
[2024-11-10] MEDS ORDERED: acetaminophen 325mg tablet PO PRN (03:20)
[2024-11-10] MEDS ORDERED: ondansetron/PF 4mg/2ml inj IV PRN (03:20)
[2024-11-10] MEDS ORDERED: magnesium sulf-water 4G/100mL 100 ML IV PRN (03:20)
[2024-11-10] MEDS ORDERED: mag hydrox/Alum hydrox/simeth 30ml oral suspension PO PRN (03:20)
[2024-11-10] MEDS ORDERED: magnesium sulf-water 2g/50mL 50 ML IV PRN (03:20)
[2024-11-10] MEDS ORDERED: magnesium Cl slow-release 64mg tablet PO PRN (03:20)
[2024-11-10] MEDS: normal saline 1000ml 1,000 ML IV SCH (04:13)
[2024-11-10] MEDS: gentamicin inj 80 MG in normal saline 100ml IV soln 100 ML IV ONE (04:13)
[2024-11-10] MEDS ORDERED: glucagon, human recombinant 1mg kit SUBCUT PRN (04:55)
[2024-11-10] MEDS ORDERED: DEXTROSE 15 GM of carb/4 tabs (each vial/BOTTLE has 4 tablets) PO PRN ×2 (04:55)
[2024-11-10] MEDS ORDERED: dextrose 50%-water 50ml dispensing syringe IV PRN ×2 (04:55)
[2024-11-10] MEDS: dextrose 50%-water 50ml dispensing syringe IV ONE (04:56)
[2024-11-10 07:51] LABS: POTASSIUM 4.2 MMOL/L (3.5-5.1)
[2024-11-10] MEDS ORDERED: ampicillin inj 1 GM in normal saline 100ml IV soln 100 ML IV SCH (08:00)
[2024-11-10] MEDS: methylPREDNISolone sod succ 125mg/2ml vial IV ONE (09:01)
[2024-11-10] MEDS: apixaban 5mg tablet PO SCH (09:02)
[2024-11-10] MEDS: azithromycin 250mg tablet PO ONE (09:02)
[2024-11-10] MEDS: metoprolol tartrate 12.5mg (1/2 tablet) PO SCH (09:17)
[2024-11-10] MEDS: docusate sod 100mg capsule PO SCH (09:18)
[2024-11-10] MEDS: K and/or MAG REPLACEMENT MC SCH (09:19)
[2024-11-10] MEDS: MEROPENEM 1GM/NACL 50ML IVPB 50 ML IV SCH (10:13)
[2024-11-10] MEDS: acetaminophen 325mg tablet PO PRN (10:38)
[2024-11-10] MEDS: ipratropium/albuterol 3ml nebule NEB SCH (11:25)
[2024-11-10] MEDS: azithromycin 250mg tablet PO SCH (13:15)
[2024-11-10] MEDS: ESCITALOPRAM 10 mg tablet 10 MG TABLET PO SCH (17:45)
[2024-11-10] MEDS: atorvastatin 10mg tablet PO SCH (17:45)
[2024-11-10] MEDS: dabigatran 150mg capsule PO SCH (20:00)
[2024-11-10] MEDS: lactobacillus rhamnosus 10,000 MMU CELLS/CAPSULE PO SCH (20:00)
[2024-11-10] MEDS: methylPREDNISolone sod succ/PF 40mg inj. IV SCH (21:49)
[2024-11-11] VITALS (10 sets, daily range): BP systolic 98–126; BP diastolic 43–58; PULSE 76–92; RESP 12–20; TEMP 97.6–98; O2SAT 90–99
[2024-11-11] MEDS: pantoprazole 40 MG vial IV SCH (07:50)
[2024-11-11] MEDS: multivitamins, therapeutics tablet PO SCH (07:51)
[2024-11-11] MEDS: cholecalciferol (vitamin D3) 1,000 unit (25mcg) tablet PO SCH (07:52)
[2024-11-12] VITALS (12 sets, daily range): BP systolic 103–117; BP diastolic 46–61; PULSE 68–92; RESP 14–18; TEMP 97.5–98.3; O2SAT 91–97
[2024-11-12 07:32] LABS: BASOPHILS % (AUTO) 0.1 % (0-1); EOSINOPHILS % (AUTO) 0.4 % (0-6); HEMOGLOBIN 8.8 g/dl (14.0-17.9); LYMPHOCYTES # (AUTO) 0.6 X10'3 (1.1-4.8); LYMPHOCYTES % (AUTO) 14.7 % (21-51); MEAN CORPUSCULAR HEMOGLOBIN 30.9 PG (27.0-31.0); MEAN CORPUSCULAR HGB CONC 33.8 g/dL (33.0-36.5); MEAN CORPUSCULAR VOLUME 91.6 FL (78-98); MEAN PLATELET VOLUME 6.8 FL (7.4-10.4); MONOCYTES # (AUTO) 0.3 X10'3 (0-0.9); MONOCYTES % (AUTO) 7.3 % (2-12); NEUTROPHILS # (AUTO) 3.4 X10'3 (1.8-7.7); NEUTROPHILS % (AUTO) 77.5 % (42-75); PLATELET COUNT 122 X10'3 (140-440); RED BLOOD COUNT 2.84 X10'6 (4.70-6.10); RED CELL DISTRIBUTION WIDTH 14.9 % (11.5-14.5); WHITE BLOOD COUNT 4.4 X10'3 (4.5-11.0)
[2024-11-12 08:17] LABS: ALANINE AMINOTRANSFERASE 13 U/L (12-78); ALBUMIN 2.5 G/DL (3.4-5.0); ALBUMIN/GLOBULIN RATIO 0.7 (1.1-1.5); ALKALINE PHOSPHATASE 395 IU/L (46-116); ANION GAP 7 (8-16); ASPARTATE AMINO TRANSFERASE 29 U/L (10-37); BILIRUBIN,TOTAL 0.2 MG/DL (0.1-1.0); BLOOD UREA NITROGEN 43 MG/DL (7-18); BUN/CREATININE RATIO 27.4 (10.0-20.0); CALCIUM 9.3 MG/DL (8.5-10.1); CHLORIDE 115 MMOL/L (99-107); CREATININE 1.57 MG/DL (0.60-1.10); GLUCOSE 117 MG/DL (70-104); MAGNESIUM 1.5 MG/DL (1.5-2.4); PHOSPHORUS 2.5 MG/DL (2.3-4.5); POTASSIUM 5.1 MMOL/L (3.5-5.1); SODIUM 147 MMOL/L (135-145); TOTAL CARBON DIOXIDE 25.4 MMOL/L (24-32); TOTAL PROTEIN 5.9 G/DL (6.4-8.2); eCRCL 39 ML/MIN; eGFR 43 ML/MIN
[2024-11-12 08:43] LABS: APTT 35 SECONDS (22-32); INR 1.4 INR; PROTHROMBIN TIME 14.7 SECONDS (9.0-12.0)
[2024-11-12] MEDS ORDERED: ciprofloxacin 250mg tablet PO ONE (15:50)
[2024-11-12] MEDS: CIPROFLOXACIN 400MG/200ML premix IV SCH (16:33)
[2024-11-12 17:07] LABS: OCCULT BLOOD STOOL NEGATIVE (Neg)
[2024-11-12] MEDS: methylPREDNISolone sod succ/PF 40mg inj. IV SCH (21:22)
[2024-11-13 06:00] VITALS: BP 129/77; PULSE 89; RESP 18; TEMP 97.8; O2SAT 94
[2024-11-13 07:46] VITALS: PULSE 87; RESP 18; O2SAT 94
[2024-11-13] MEDS ORDERED: ALBU8HFA INH (08:34)
[2024-11-13] MEDS ORDERED: CIPR-259 PO (08:34)
[2024-11-13] MEDS ORDERED: PRED10TA23 PO (08:34)
[2024-11-13] MEDS ORDERED: LACT1CAP26 PO (08:34)
[2024-11-13 09:03] VITALS: BP_SYST 114; PULSE 81
[2024-11-13 09:09] LABS: BASOPHILS % (AUTO) 0.1 % (0-1); EOSINOPHILS # (AUTO) 0.1 X10'3 (0-0.9); EOSINOPHILS % (AUTO) 1.1 % (0-6); HEMATOCRIT 24.3 % (42.0-52.0); HEMOGLOBIN 8.1 g/dl (14.0-17.9); LYMPHOCYTES % (AUTO) 19.4 % (21-51); MEAN CORPUSCULAR HEMOGLOBIN 30.7 PG (27.0-31.0); MEAN CORPUSCULAR HGB CONC 33.2 g/dL (33.0-36.5); MEAN CORPUSCULAR VOLUME 92.5 FL (78-98); MEAN PLATELET VOLUME 6.5 FL (7.4-10.4); MONOCYTES # (AUTO) 0.3 X10'3 (0-0.9); MONOCYTES % (AUTO) 6.4 % (2-12); NEUTROPHILS # (AUTO) 3.7 X10'3 (1.8-7.7); PLATELET COUNT 119 X10'3 (140-440); RED BLOOD COUNT 2.63 X10'6 (4.70-6.10); RED CELL DISTRIBUTION WIDTH 15.1 % (11.5-14.5)
[2024-11-13 09:35] LABS: ALANINE AMINOTRANSFERASE 16 U/L (12-78); ALBUMIN 2.4 G/DL (3.4-5.0); ALBUMIN/GLOBULIN RATIO 0.7 (1.1-1.5); ALKALINE PHOSPHATASE 385 IU/L (46-116); ANION GAP 6 (8-16); ASPARTATE AMINO TRANSFERASE 26 U/L (10-37); BILIRUBIN,TOTAL 0.2 MG/DL (0.1-1.0); BLOOD UREA NITROGEN 39 MG/DL (7-18); BUN/CREATININE RATIO 26.7 (10.0-20.0); CALCIUM 9.1 MG/DL (8.5-10.1); CHLORIDE 115 MMOL/L (99-107); CREATININE 1.46 MG/DL (0.60-1.10); GLUCOSE 138 MG/DL (70-104); POTASSIUM 5.1 MMOL/L (3.5-5.1); SODIUM 146 MMOL/L (135-145); TOTAL CARBON DIOXIDE 25.3 MMOL/L (24-32); TOTAL PROTEIN 5.8 G/DL (6.4-8.2); eCRCL 41 ML/MIN; eGFR 47 ML/MIN
== END 2024-11-13 13:40 | disposition home or self-care (01) | DRG 70 ==
LOC: ER 22:08 → ED HOLD 11-10 03:26 → ORTHO 4S 11-10 17:15
PROVIDERS: ADMIT Internal Medicine Sleep Medicine; ATTEND Family Medicine
DX: G93.41 Metabolic encephalopathy (principal); J15.9 Unspecified bacterial pneumonia; N17.0 Acute kidney failure with tubular necrosis; N39.0 Urinary tract infection, site not specified; J44.0 Chronic obstructive pulmonary disease with (acute) lower respiratory infection; C91.10 Chronic lymphocytic leukemia of B-cell type not having achieved remission; N18.9 Chronic kidney disease, unspecified; D64.9 Anemia, unspecified; Z20.822 Contact with and (suspected) exposure to COVID-19; D69.6 Thrombocytopenia, unspecified; I12.9 Hypertensive chronic kidney disease with stage 1 through stage 4 chronic kidney disease, or unspecified chronic kidney disease; E78.00 Pure hypercholesterolemia, unspecified; E11.22 Type 2 diabetes mellitus with diabetic chronic kidney disease; R62.7 Adult failure to thrive; F03.90 Unspecified dementia, unspecified severity, without behavioral disturbance, psychotic disturbance, mood disturbance, and anxiety; E86.0 Dehydration; E11.649 Type 2 diabetes mellitus with hypoglycemia without coma; E11.42 Type 2 diabetes mellitus with diabetic polyneuropathy; F32.A Depression, unspecified; N40.0 Benign prostatic hyperplasia without lower urinary tract symptoms; Z90.49 Acquired absence of other specified parts of digestive tract; Z88.1 Allergy status to other antibiotic agents; Z79.899 Other long term (current) drug therapy; Z68.20 Body mass index [BMI] 20.0-20.9, adult
CPT/HCPCS: 36415; 71045; 74176; 80053; 81001; 82272; 82948; 83605; 83735; 83930; 84100; 84132; 84484; 85025; 85610; 85730; 87040; 87077; 87081; 87088; 87186; 87502; 87503; 87811; 92508; 93005; 94640; 94760; 96374; 97110; 97162; 99285; A6590; C1758; G0378; J0744; J1580; J2185; J2470; J2919; J3490; J7030; J7040